=== PATIENT | female | born 1955 | race Caucasian/White ===

== ENCOUNTER 2020-01-16 11:03 | Outpatient (CLI) | payer MEDICARE, OTHER, SELFPAY ==
--- NOTE | ~2020-01-16 | XR_ITS ---
EXAMINATION: XR foot RT min 3V DATE: 01/16/2020 11:26 INDICATION: Dorsal right foot pain and swelling post fall 2 days prior TECHNIQUE: Dorsoplantar, two oblique and lateral views of the right foot were obtained. COMPARISON: None. FINDINGS: Alignment is normal. No fracture. Mild osteoarthritis at the first metatarsophalangeal and a few inte rphalangeal joints. Soft tissues are unremarkable. IMPRESSION: 1. 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 No acute osseous abnormality. Reviewed, dictated and finalized at location B. IMPRESSION: 1. 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 No acute osseous abnormal ity.
== END 2020-01-16 11:04 | disposition home or self-care (01) ==
LOC: CHSIMG 11:06
PROVIDERS: PCP Family Medicine; Visit Provider Family Medicine
DX: M79.671 Pain in right foot (principal); S99.929A Unspecified injury of unspecified foot, initial encounter
CPT/HCPCS: 73630

== ENCOUNTER 2020-02-16 12:17 | Outpatient (CLI) | payer MEDICARE, OTHER, SELFPAY ==
--- NOTE | ~2020-02-16 | MM_ITS ---
EXAMINATION: MM screening elizabeth BI w staci HISTORY: Screening mammogram, family history of breast cancer in her sister. TECHNIQUE: Craniocaudal and mediolateral oblique 3-D tomosynthesis images were obtained and synthetic 2-D images were generated. CAD analysis was submitted and interpreted. COMPARISON: 02/14/2019, 02/08/2019, 03/17/2017, 03/10/2016 BREAST PARENCHYMAL COMPOSITION: The breasts are heterogeneously dense, which may obscure small masses . FINDINGS: There is no evidence of suspicious mass, calcification, or architectural distortion to sugg est malignancy in either breast. There has been no suspicious interval change. IMPRESSION: 1. No mammographic evidence of malignancy. 2. Recommend routine screening mammography in one year. BI-RADS Category 1: Negative Reviewed, dictated and finalized at location A. LE CUT SAWYER
== END 2020-02-16 12:18 | disposition home or self-care (01) ==
LOC: CHSIMG 12:19
PROVIDERS: PCP Family Medicine; Visit Provider Family Medicine
DX: Z12.31 Encounter for screening mammogram for malignant neoplasm of breast (principal)
CPT/HCPCS: 77063; 77067

== ENCOUNTER 2020-08-19 07:32 | Emergency (ER) | payer MEDICARE, OTHER, SELFPAY ==
[2020-08-19 07:35] VITALS: BP 129/110; PULSE 115; RESP 20; TEMP 37.2; O2SAT 97
[2020-08-19] MEDS: HYDROcodone/acetaminophen (*CRX) 5-325 MG TABLET 1 TAB PO ×2 (07:53→09:25)
[2020-08-19] MEDS: KETOROLAC (*BKC) 60 MG/2 ML VIAL IM (07:54)
[2020-08-19 08:04] VITALS: BP 142/79
[2020-08-19 08:27] LABS: Basophils Absolute Auto 0.03 K/mm3 (0.00-0.10); Basophils Percent Auto 0.2 % (0.0-1.0); Hematocrit 34.8 % (35.0-42.0); Hemoglobin 12.5 g/dL (11.7-13.8); Immature Granulocyte Absolute 0.13 K/mm3 (0.00-0.00); Lymphocytes Absolute Auto 0.83 K/mm3 (1.10-4.50); Lymphocytes Percent Auto 6.3 % (18.0-42.0); Mean Corpuscular HGB Conc 35.9 g/dL (32.0-36.0); Mean Corpuscular Hemoglobin 33.2 pg (27.0-31.0); Mean Corpuscular Volume 92.6 fL (78.0-102.0); Mean Platelet Volume 8.1 fl (9.2-11.8); Monocytes Absolute Auto 1.97 K/mm3 (0.10-0.90); Monocytes Percent Auto 14.9 % (2.0-11.0); Neutrophils Absolute Auto 10.3 K/mm3 (1.7-7.2); Neutrophils Percent Auto 77.6 % (50.0-70.0); Platelet Count Result 420 K/mm3 (150-420); Red Blood Count 3.76 M/mm3 (4.20-5.40); Red Cell Distribution Width 12.1 % (11.6-14.4); White Blood Count 13.2 K/mm3 (4.8-10.8)
[2020-08-19] MEDS: ONDANSETRON HCL ODT 4 MG TABLET PO (08:37)
[2020-08-19 08:42] LABS: Alanine Aminotransferase 24 U/L (14-59); Albumin Level 3.2 g/dL (3.4-5.0); Alkaline Phosphatase 96 U/L (46-116); Anion Gap 11 mmol/L (8-16); Aspartate Amino Transferase 16 U/L (15-37); Bilirubin,Total 0.8 mg/dL (0.00-1.00); Blood Urea Nitrogen 28 mg/dL (7-18); Calcium 9.7 mg/dL (8.5-10.1); Carbon Dioxide 27 mmol/L (21-32); Chloride 86 mmol/L (98-108); Estimated Glomerular Filt Rate 39; Glucose 123 mg/dL (70-99); Osmolality Calculated 264 mOsm/kg (285-295); Potassium 3.6 mmol/L (3.5-5.1); Sodium 124 mmol/L (136-145); Total Protein 8.5 g/dL (6.4-8.2); Uric Acid 4.5 mg/dL (2.6-6.0)
[2020-08-19 08:45] LABS: CRP > 25.0 mg/dL (0.0-0.9)
[2020-08-19 08:53] LABS: RFT Charge Test YES; Rheumatoid Factor Screen Positive (Negative)
[2020-08-19] MEDS: SODIUM CHLORIDE 0.9% IV 1,000 ML 999 ML IV CONT (09:25)
[2020-08-19 09:27] LABS: Erythrocyte Sedimentation Rate 46 mm/hr (0-20)
[2020-08-19] MEDS: DEXAMETHASONE SOD PHOS INJ 4 MG/ML VIAL 10 MG IV PUSH (09:27)
[2020-08-19] MEDS: BACLOFEN 10 MG TABLET 20 MG PO (09:27)
[2020-08-19 09:34] VITALS: BP 133/62
--- NOTE | 2020-08-19 09:41 | ED.EXTPRO ---
HPI - Extremity Problem General Chief complaint: Extremity Problem,Nontraumatic Stated complaint: Pain in body Time Seen by Provider: 08/19/20 07:40 Source: patient and family Mode of arrival: ambulatory Limitations: no limitations History of Present Illness HPI Narrative: This young woman presents with diffuse body aches. She says she has been hurting all over for at least a week. Pain has been moderately severe to severe, sharp, and ongoing in right wrist, and right shoulder. Tylenol at home has not helped. It would appear this episode of pain was precipitated by her drinking alcohol in excess. She has had no known history of gout prior to this. She has been on medication known to precipitate gout. No modifying factors. Complaint: extremity pain Onset (ago): day(s) Pain Consistency: constant Location: right and other (wrist and shoulder) Quality: stabbing Relieving factors: nothing Exacerbating factors: exertion Associated symptoms: denies other symptoms Related Data Allergies Allergy/AdvReac Type Severity Reaction Status Date / Time No Known Allergies Allergy Verified 08/21/20 07:13 Review of Systems Constitutional: Constitutional: Reports no additional constitutional complaints Eyes: Eyes: Reports no additional eye complaints ENT: Reports system reviewed and no additional complaints, except as documented Cardiovascular: Cardiovascular: Reports no additional cardiovascular complaints Respiratory: Respiratory: Reports no additional respiratory complaints Gastrointestinal: Gastrointestinal: Reports no additional gastrointestinal complaints Genitourinary: Genitourinary: Reports no additional female genitourinary complaints Musculoskeletal: Musculoskeletal: Reports no additional musculoskeletal complaints Integumentary/Breasts: Skin/Breast: Reports system reviewed and no additional complaints, except as docu Neurologic: Reports system reviewed and no additional complaints, except as documented Psychiatric: Psychiatric: Reports no additional psychiatric complaints Endocrine: Endocrine: Reports no additional endocrine complaints Hematologic/Lymphatic: Hematologic/Lymphatic: Reports no additional hematologic/lymphatic complaints Allergic/Immunologic: Allergic/Immunologic: Reports no additional allergic/immunologic complaints [facility] Past Medical History Medical History Alcoholic cirrhosis of liver without ascites Primary hypertension Surgical History Surgical History Status post complete hysterectomy Family History Family History Father Acute myocardial infarction Mother Cervical cancer Social History Social History Smoking packs per day: 1 Smoking cigarettes per day: 20.0 Years smoked: 44 Smoking pack-years: 44.00 Smoking status: Former smoker Tobacco type: cigarettes Smoking end date: 06/07/18 Alcohol intake: current Drinks per week: 22 Substance use: never 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 Gender identity (if verbalized by the patient): Female Spiritual care concerns: No Exam Const: General: alert Orientation/consciousness: patient oriented x3 HENMT: Head: normal to inspection Ears: external ears normal and TM's normal bilaterally General nose exam: Normal external nose present Mouth: Yes Normal oral and palatal mucosa present Throat: posterior oropharynx normal Eyes: Conjunctivae: conjunctivae normal Neck: Neck: normal visual inspection Chest: Chest palpation & inspection: normal inspection of the chest Resp: Effort & Inspection: normal respiratory effort Auscultation: clear to auscultation bilaterally Cardio: Rate: regular rate Rhythm: regular rhythm GI: GI Palp: Yes Soft to palpation (nonte
[2020-08-19 10:05] LABS: Add Urine Microscopic? YES; Appearance Urine Clear (Clear); Bilirubin Urine 1+ (Negative); Blood Urine Negative (Negative); Color Urine Yellow (Yellow); Glucose Urine UA Negative (Negative); Ketones Urine 1+ (Negative); Leukocyte Esterase Ur Negative LEU/UL (Negative); Nitrate Urine Negative (Negative); Protein Urine 1+ (Negative)
[2020-08-19 10:10] LABS: RBC Urine None seen /hpf (0-2); Squamous Epithelial Cell Urine Moderate /hpf (Few); WBC Urine 0-3 /hpf (0-3)
[2020-08-19 10:11] LABS: Bacteria Urine 1+ /hpf
[2020-08-19 11:33] VITALS: RESP 17
== END 2020-08-19 11:35 | disposition home or self-care (01) ==
PROVIDERS: Emergency Provider Emergency Medicine; PCP Family Medicine
DX: M10.9 Gout, unspecified (principal)
CPT/HCPCS: 36415; 80053; 81001; 83735; 84550; 85025; 85652; 86038; 86140; 86430; 86431; 96361; 96372; 96374; 99283; 99284; A9270; J1100; J1885; J7030

== ENCOUNTER 2020-09-05 15:10 | Outpatient (CLI) | payer MEDICARE, OTHER, SELFPAY ==
--- NOTE | ~2020-09-05 | XR_ITS ---
XR hand BI arthritis min 3V DATE: 09/05/2020 15:48 INDICATION: Bilateral hand pain TECHNIQUE: 4 views of each hand COMPARISON: None FINDINGS: No fracture or dislocation, periosteal reaction or bone destruction, erosive change or nathaniel drocalcinosis. Joint spaces appear relatively preserved. IMPRESSION: No significant abnormality Reviewed, dictated and finalized at location A. IMPRESSION: No significant abnormality
== END 2020-09-05 15:11 | disposition home or self-care (01) ==
LOC: CHSIMG 15:16
PROVIDERS: PCP Family Medicine; Visit Provider Family Medicine
DX: D89.89 Other specified disorders involving the immune mechanism, not elsewhere classified (principal)
CPT/HCPCS: 73130

== ENCOUNTER 2020-09-25 10:10 | Outpatient (CLI) | payer MEDICARE, OTHER, SELFPAY ==
--- NOTE | ~2020-09-25 | US_ITS ---
EXAMINATION: US venous doppler [facility] DATE: 09/25/2020 11:12 INDICATION: Other specified soft tissue disorders TECHNIQUE: Cardozo scale images without and with compression and Doppler images of the left lower extrem ity veins were obtained. COMPARISON: None FINDINGS: The left common femoral vein, profunda femoral vein, femoral vein, popliteal vein, peroneal trunk, posterior tibial veins, and greater saphenous vein are patent. IMPRESSION: 1. Patent left lower extremity veins. No evidence of deep venous thrombosis. Reviewed, dictated and finalized at location A.
[2020-09-25 10:35] LABS: Hematocrit 32.4 % (35.0-42.0); Hemoglobin 11.3 g/dL (11.7-13.8); Mean Corpuscular HGB Conc 34.9 g/dL (32.0-36.0); Mean Corpuscular Volume 94.7 fL (78.0-102.0); Mean Platelet Volume 7.9 fl (9.2-11.8); Platelet Count Result 261 K/mm3 (150-420); Red Blood Count 3.42 M/mm3 (4.20-5.40); Red Cell Distribution Width 12.9 % (11.6-14.4); White Blood Count 7.2 K/mm3 (4.8-10.8)
[2020-09-25 11:25] LABS: Alanine Aminotransferase 46 U/L (14-59); Alkaline Phosphatase 103 U/L (46-116); Anion Gap 12 mmol/L (8-16); Aspartate Amino Transferase 34 U/L (15-37); Bilirubin,Total 0.4 mg/dL (0.00-1.00); Blood Urea Nitrogen 12 mg/dL (7-18); Carbon Dioxide 27 mmol/L (21-32); Chloride 95 mmol/L (98-108); Estimated Glomerular Filt Rate 57; Glucose 93 mg/dL (70-99); NT Pro B Type Natriuretic Pept 132 pg/mL (0-125); Osmolality Calculated 277 mOsm/kg (285-295); Potassium 3.7 mmol/L (3.5-5.1); Sodium 134 mmol/L (136-145); Total Protein 6.5 g/dL (6.4-8.2)
[2020-09-25 11:35] LABS: Calcium 8.4 mg/dL (8.5-10.1)
== END 2020-09-25 10:11 | disposition home or self-care (01) ==
LOC: CHSLAB 10:19
PROVIDERS: PCP Family Medicine; Visit Provider Family Medicine
DX: M79.89 Other specified soft tissue disorders (principal); D89.89 Other specified disorders involving the immune mechanism, not elsewhere classified; I50.89 Other heart failure
CPT/HCPCS: 36415; 80053; 83880; 85027; 93971

== ENCOUNTER 2021-02-18 11:47 | Outpatient (CLI) | payer MEDICARE, OTHER, SELFPAY ==
--- NOTE | ~2021-02-18 | MM_ITS ---
EXAMINATION: MM screening elizabeth BI w staci HISTORY: Screening mammogram, family history of breast cancer in her sister. TECHNIQUE: Craniocaudal and mediolateral oblique 3-D tomosynthesis images were obtained and synthetic 2-D images were generated. CAD analysis was submitted and interpreted. COMPARISON: 02/16/2020, 02/14/2019 BREAST PARENCHYMAL COMPOSITION: The breasts are heterogeneously dense, which may obscure small masses . FINDINGS: There is no evidence of suspicious mass, calcification, or architectural distortion to sugg est malignancy in either breast. There has been no suspicious interval change. IMPRESSION: 1. No mammographic evidence of malignancy. 2. Recommend routine screening mammography in one year. BI-RADS Category 1: Negative Reviewed, dictated and finalized at location A. HET BEADER
== END 2021-02-18 11:48 | disposition home or self-care (01) ==
LOC: CHSIMG 11:48
PROVIDERS: PCP Family Medicine; Visit Provider Family Medicine
DX: Z12.31 Encounter for screening mammogram for malignant neoplasm of breast (principal)
CPT/HCPCS: 77063; 77067

== ENCOUNTER 2021-05-11 07:16 | Outpatient (CLI) | payer MEDICARE, OTHER, SELFPAY ==
--- NOTE | ~2021-05-11 | XR_ITS ---
EXAMINATION: XR foot RT standing 2V EXAM DATE: 05/11/2021 08:26 INDICATION: M05.79 - Rheumatoid arthritis with rheumatoid factor of m... TECHNIQUE: Frontal and lateral projections of the right foot Comparison is made to prior examination from 01/16/2020. FINDINGS: There are no acute right foot fractures or dislocations identified. There is no subcutaneo us gas. The soft tissue is unremarkable. There are no radiopaque foreign bodies. There is forefoo t periarticular osteopenia which can be an early finding of rheumatoid arthritis. Similar appearance to contralateral side. There are no bony erosions identified. IMPRESSION: Right forefoot periventricular osteopenia. Reviewed, dictated and finalized at location G. EQUIPMENT OPERATOR
--- NOTE | ~2021-05-11 | XR_ITS ---
EXAMINATION: XR hand BI arthritis min 3V EXAM DATE: 05/11/2021 08:26 INDICATION: M05.79 - Rheumatoid arthritis with rheumatoid factor of m... TECHNIQUE: Frontal, oblique, lateral projections of the hands bilaterally, 4 images obtained. Compar darren is made to prior examination from 09/05/2020. FINDINGS: Joint spaces are uniform and symmetric. There are no bony erosions identified. There are n o acute fractures or dislocations identified. There is no subcutaneous gas. The soft tissue is unre markable. There are no radiopaque foreign bodies. IMPRESSION: 1. Unremarkable bilateral handexam. Reviewed, dictated and finalized at location G. NCE TECHNICIAN
--- NOTE | ~2021-05-11 | XR_ITS ---
EXAMINATION: XR cervical spine 4-5V EXAM DATE: 05/11/2021 08:26 INDICATION: Rheumatoid Arthritis TECHNIQUE: Cervical spine frontal, lateral, lateral swimmers, and open-mouth odontoid projections. There is no prior study for comparison. FINDINGS: Mild carotid calcification, arterial sclerotic disease, with unknown amount of additional atherosclerotic disease. Consider correlating with carotid ultrasound. There is mild to moderate loss of the disc height from C5-7. The vertebral bodies are aligned in the AP dimension. There is moderate cervical uncovertebral and facet joint arthropathy. The odontoid proc ess is intact. The lateral masses of C1 line up with C2. Prevertebral soft tissue and pre-dens space are within normal limits. There are no bony erosions identified. There are no acute fractures identi fied. IMPRESSION: 1. Moderate cervical arthropathy, mild to moderate lower cervical disc disease. 2. Carotid calcification, consider ultrasound. Reviewed, dictated and finalized at location G. LE WEBCENTER CONSULTANT IMPRESSION: 1. Moderate cervical arthropathy, mild to moderate lower cervical disc diseas e. 2. Carotid calcification, consider ultrasound.
--- NOTE | ~2021-05-11 | XR_ITS ---
EXAMINATION: XR foot LT standing 2V EXAM DATE: 05/11/2021 08:26 INDICATION: M05.79 - Rheumatoid arthritis with rheumatoid factor of m... TECHNIQUE: Frontal and lateral projections of the left foot. Correlation is made to contralateral fo ot same date. FINDINGS: There are no acute left foot fractures or dislocations identified. There is no subcutaneou s gas. The soft tissue is unremarkable. There are no radiopaque foreign bodies. There is forefoot periarticular osteopenia, can be an early finding of rheumatoid arthritis. This appears symmetric to the contralateral side. There are no bony erosions identified. IMPRESSION: Left forefoot periventricular osteopenia. Reviewed, dictated and finalized at location . YING AND CALKING SUPERVISOR
[2021-05-11 07:38] LABS: Hematocrit 43.1 % (35.0-42.0); Hemoglobin 14.7 g/dL (11.7-13.8); Mean Corpuscular HGB Conc 34.1 g/dL (32.0-36.0); Mean Corpuscular Volume 96.6 fL (78.0-102.0); Mean Platelet Volume 8.8 fl (9.2-11.8); Platelet Count Result 372 K/mm3 (150-420); Red Blood Count 4.46 M/mm3 (4.20-5.40); Red Cell Distribution Width 11.5 % (11.6-14.4); White Blood Count 6.8 K/mm3 (4.8-10.8)
[2021-05-11 07:39] LABS: Appearance Urine Clear (Clear); Bilirubin Urine Negative (Negative); Color Urine Yellow (Yellow); Glucose Urine UA Negative (Negative); Ketones Urine Negative (Negative); Leukocyte Esterase Ur Negative LEU/UL (Negative); Nitrate Urine Negative (Negative); Protein Urine Trace (Negative); Specific Grav Ur >= 1.030 (1.010-1.020); Urobilinogen Urine 0.2 mg/dL (0.2-1.0); pH Urine 5.5 (5.0-8.0)
[2021-05-11 07:46] LABS: Add Urine Microscopic? YES; Blood Urine Trace-lysed (Negative)
[2021-05-11 07:47] LABS: RBC Urine 0-2 /hpf (0-2); WBC Urine 0-3 /hpf (0-3)
[2021-05-11 07:48] LABS: Bacteria Urine Trace /hpf; Squamous Epithelial Cell Urine Moderate /hpf (Few)
[2021-05-11 07:49] LABS: Mucus Urine Moderate /lpf
[2021-05-11 08:20] LABS: Alanine Aminotransferase 45 U/L (14-59); Albumin Level 4.1 g/dL (3.4-5.0); Alkaline Phosphatase 94 U/L (46-116); Anion Gap 8 mmol/L (8-16); Aspartate Amino Transferase 31 U/L (15-37); Bilirubin,Total 0.5 mg/dL (0.00-1.00); Blood Urea Nitrogen 11 mg/dL (7-18); Calcium 9.7 mg/dL (8.5-10.1); Carbon Dioxide 31 mmol/L (21-32); Chloride 100 mmol/L (98-108); Estimated Glomerular Filt Rate 47; Glucose 89 mg/dL (70-99); Osmolality Calculated 286 mOsm/kg (285-295); Potassium 4.1 mmol/L (3.5-5.1); Sodium 139 mmol/L (136-145); Total Protein 7.9 g/dL (6.4-8.2)
[2021-05-11 08:23] LABS: CRP < 0.2 mg/dL (0.0-0.9)
[2021-05-11 08:46] LABS: Erythrocyte Sedimentation Rate 38 mm/hr (0-20)
[2021-05-15 22:34] LABS: Anti Cyclic Citrullinated Pept >250 Units (<20)
== END 2021-05-11 07:17 | disposition home or self-care (01) ==
LOC: CHSIMG 07:19
PROVIDERS: PCP Family Medicine; Visit Provider Internal Medicine
DX: R89.9 Unspecified abnormal finding in specimens from other organs, systems and tissues (principal); M05.79 Rheumatoid arthritis with rheumatoid factor of multiple sites without organ or systems involvement; M19.90 Unspecified osteoarthritis, unspecified site
CPT/HCPCS: 36415; 72050; 73130; 73620; 80053; 81001; 85027; 85652; 86038; 86140; 86200

== ENCOUNTER 2021-09-16 07:06 | Outpatient (CLI) | payer MEDICARE, SELFPAY ==
[2021-09-16 07:26] LABS: Add Urine Microscopic? YES; Appearance Urine Clear (Clear); Basophils Absolute Auto 0.06 K/mm3 (0.00-0.10); Basophils Percent Auto 0.9 % (0.0-1.0); Bilirubin Urine Negative (Negative); Blood Urine Negative (Negative); Color Urine Light Yellow (Yellow); Eosinophils Absolute Auto 0.33 K/mm3 (0.02-0.50); Eosinophils Percent Auto 5.2 % (1.0-6.0); Glucose Urine UA Negative (Negative); Hematocrit 38.2 % (35.0-42.0); Hemoglobin 12.9 g/dL (11.7-13.8); Immature Granulocyte Absolute 0.02 K/mm3 (0.00-0.00); Immature Granulocyte Percent A 0.3 % (0.0-0.0); Ketones Urine Negative (Negative); Leukocyte Esterase Ur Trace LEU/UL (Negative); Lymphocytes Absolute Auto 1.57 K/mm3 (1.10-4.50); Lymphocytes Percent Auto 24.6 % (18.0-42.0); Mean Corpuscular HGB Conc 33.8 g/dL (32.0-36.0); Mean Corpuscular Hemoglobin 31.5 pg (27.0-31.0); Mean Corpuscular Volume 93.2 fL (78.0-102.0); Mean Platelet Volume 8.8 fl (9.2-11.8); Monocytes Absolute Auto 0.83 K/mm3 (0.10-0.90); Neutrophils Absolute Auto 3.6 K/mm3 (1.7-7.2); Nitrate Urine Negative (Negative); Platelet Count Result 414 K/mm3 (150-420); Protein Urine Negative (Negative); Red Cell Distribution Width 11.5 % (11.6-14.4); Specific Grav Ur >= 1.030 (1.010-1.020); Urobilinogen Urine 0.2 mg/dL (0.2-1.0); White Blood Count 6.4 K/mm3 (4.8-10.8)
[2021-09-16 07:33] LABS: RBC Urine None seen /hpf (0-2); Squamous Epithelial Cell Urine Few /hpf (Few); WBC Urine 0-3 /hpf (0-3)
[2021-09-16 07:34] LABS: Bacteria Urine Trace /hpf
[2021-09-16 07:45] LABS: Alanine Aminotransferase 21 U/L (14-59); Albumin Level 3.4 g/dL (3.4-5.0); Alkaline Phosphatase 104 U/L (46-116); Anion Gap 5 mmol/L (8-16); Aspartate Amino Transferase 19 U/L (15-37); Bilirubin,Total 0.5 mg/dL (0.00-1.00); Blood Urea Nitrogen 21 mg/dL (7-18); CRP 2.1 mg/dL (0.0-0.9); Calcium 9.2 mg/dL (8.5-10.1); Carbon Dioxide 29 mmol/L (21-32); Chloride 102 mmol/L (98-108); Estimated Glomerular Filt Rate 42; Glucose 96 mg/dL (70-99); Osmolality Calculated 285 mOsm/kg (285-295); Potassium 4.2 mmol/L (3.5-5.1); Sodium 136 mmol/L (136-145); Total Protein 7.9 g/dL (6.4-8.2)
[2021-09-16 08:31] LABS: Erythrocyte Sedimentation Rate 48 mm/hr (0-20)
== END 2021-09-16 07:07 | disposition home or self-care (01) ==
LOC: CHSLAB 07:08
PROVIDERS: PCP Family Medicine; Visit Provider Internal Medicine
DX: M06.9 Rheumatoid arthritis, unspecified (principal); M05.79 Rheumatoid arthritis with rheumatoid factor of multiple sites without organ or systems involvement; M19.90 Unspecified osteoarthritis, unspecified site
CPT/HCPCS: 36415; 80053; 81001; 85025; 85652; 86140

== ENCOUNTER 2021-10-29 13:44 | Outpatient (CLI) | payer MEDICARE, OTHER, SELFPAY ==
--- NOTE | ~2021-10-29 | US_ITS ---
US abdomen limited INDICATION: Alcoholic cirrhosis PROCEDURE: Realtime right upper abdominal ultrasound. COMPARISON: No prior studies for comparison. FINDINGS: The pancreas is normal without focal mass or pancreatic ductal dilation. Liver echotexture is normal without intrahepatic biliary dilatation. There is a small hyperechoic 9 mm lesion of the l iver, most likely benign hemangioma in the absence of known malignancy. There is normal directional f low in the portal vein. The gallbladder is normal without stones, gallbladder wall thickening or pericholecystic fluid. Comm on bile duct measures 5.7 mm. No sonographic Gonzalez's sign. IMPRESSION: 1: Small 9 mm hyperechoic liver lesion, most likely benign hemangioma in the absence of known maligna ncy. Clinically correlate. Reviewed, dictated and finalized at location A. IMPRESSION: 1: Small 9 mm hyperechoic liver lesion, most likely benign hemangioma in the ab sence of known malignancy. Clinically correlate.
== END 2021-10-29 13:45 | disposition home or self-care (01) ==
LOC: CHSIMG 13:48
PROVIDERS: PCP Family Medicine; Visit Provider Family Medicine
DX: K70.30 Alcoholic cirrhosis of liver without ascites (principal)
CPT/HCPCS: 76705

== ENCOUNTER 2022-01-20 07:26 | Outpatient (CLI) | payer MEDICARE, SELFPAY ==
[2022-01-20 07:40] LABS: Hematocrit 42.1 % (35.0-42.0); Hemoglobin 13.9 g/dL (11.7-13.8); Mean Corpuscular Hemoglobin 30.2 pg (27.0-31.0); Mean Corpuscular Volume 91.5 fL (78.0-102.0); Mean Platelet Volume 8.2 fl (9.2-11.8); Platelet Count Result 424 K/mm3 (150-420); Red Cell Distribution Width 13.4 % (11.6-14.4); White Blood Count 8.8 K/mm3 (4.8-10.8)
[2022-01-20 08:12] LABS: Alanine Aminotransferase 18 U/L (14-59); Albumin Level 3.8 g/dL (3.4-5.0); Alkaline Phosphatase 120 U/L (46-116); Anion Gap -2 mmol/L (8-16); Aspartate Amino Transferase 20 U/L (15-37); Bilirubin,Total 0.5 mg/dL (0.00-1.00); Blood Urea Nitrogen 19 mg/dL (7-18); CRP 1.1 mg/dL (0.0-0.9); Calcium 9.4 mg/dL (8.5-10.1); Carbon Dioxide 30 mmol/L (21-32); Chloride 100 mmol/L (98-108); Estimated Glomerular Filt Rate 52; Glucose 97 mg/dL (70-99); Osmolality Calculated 268 mOsm/kg (285-295); Potassium 4.3 mmol/L (3.5-5.1); Sodium 128 mmol/L (136-145); Total Protein 7.7 g/dL (6.4-8.2)
[2022-01-20 08:44] LABS: Erythrocyte Sedimentation Rate 36 mm/hr (0-20)
[2022-01-20 09:04] LABS: Add Urine Microscopic? NO; Appearance Urine Clear (Clear); Bilirubin Urine Negative (Negative); Blood Urine Negative (Negative); Color Urine Yellow (Yellow); Glucose Urine UA Negative (Negative); Ketones Urine Negative (Negative); Leukocyte Esterase Ur Negative LEU/UL (Negative); Nitrate Urine Negative (Negative); Protein Urine Negative (Negative); Specific Grav Ur >= 1.030 (1.010-1.020); Urobilinogen Urine 0.2 mg/dL (0.2-1.0)
== END 2022-01-20 07:27 | disposition home or self-care (01) ==
LOC: CHSLAB 07:29
PROVIDERS: PCP Family Medicine; Visit Provider Internal Medicine
DX: M19.90 Unspecified osteoarthritis, unspecified site (principal); M05.79 Rheumatoid arthritis with rheumatoid factor of multiple sites without organ or systems involvement; M06.9 Rheumatoid arthritis, unspecified
CPT/HCPCS: 36415; 80053; 81003; 85027; 85652; 86140

== ENCOUNTER 2022-02-20 13:46 | Outpatient (CLI) | payer MEDICARE, OTHER, SELFPAY ==
--- NOTE | ~2022-02-20 | MM_ITS ---
EXAMINATION: MM screening elizabeth BI w staci HISTORY: Screening TECHNIQUE: Craniocaudal and mediolateral oblique 3-D tomosynthesis images were obtained and synthetic 2-D images were generated. CAD analysis was submitted and interpreted. COMPARISON: Comparison to multiple prior studies sequentially, with oldest reviewed study dated 08/2015. BREAST PARENCHYMAL COMPOSITION: The breasts are extremely dense, which lowers the sensitivity of mamm ography FINDINGS: There is no evidence of suspicious mass, calcification, or architectural distortion to sugg est malignancy in either breast. There has been no suspicious interval change. IMPRESSION: 1. No mammographic evidence of malignancy. 2. Recommend routine screening mammography in one year. BI-RADS Category 1: Negative Reviewed, dictated and finalized at location A. T NURSE MANAGER
== END 2022-02-20 13:47 | disposition home or self-care (01) ==
LOC: CHSIMG 13:47
PROVIDERS: PCP Family Medicine; Visit Provider Family Medicine
DX: Z12.31 Encounter for screening mammogram for malignant neoplasm of breast (principal)
CPT/HCPCS: 77063; 77067

== ENCOUNTER 2022-10-03 15:24 | Emergency (ER) | payer MEDICARE, OTHER, SELFPAY ==
[2022-10-03 15:24] VITALS: BP 173/94; PULSE 88; RESP 16; TEMP 36.9; O2SAT 100
--- NOTE | 2022-10-03 15:33 | ED.SKABFB ---
HPI - Skin/Abscess/Foreign Bdy General Chief complaint: Skin/Abscess/Foreign Body Stated complaint: poison mathieu rash Time Seen by Provider: 10/03/22 15:33 Source: patient and RN notes reviewed Mode of arrival: ambulatory Limitations: no limitations History of Present Illness complaint: rash Onset (ago): day(s) (2) Tetanus up to date: yes Location: generalized and face Severity: moderate Quality: constant and pruritic Pain Consistency: constant Relieving factors: none Context: other ( contact with poison mathieu) Associated symptoms: itching Treatments prior to arrival: OTC topical medication Related Data Allergies Allergy/AdvReac Type Severity Reaction Status Date / Time No Known Allergies Allergy Verified 08/05/22 10:57 Review of Systems Review of Systems: All systems reviewed & are unremarkable except as noted in HPI and below PMFSH Past Medical History Medical History Alcoholic cirrhosis of liver without ascites Alcoholic polyneuropathy Primary hypertension Rheumatoid arthritis with rheumatoid factor of multiple sites without organ or systems involvement (~08/2020) Surgical History Surgical History Status post complete hysterectomy Family History Family History Father Acute myocardial infarction Mother Cervical cancer Social History Social History Smoking packs per day: 1 Smoking cigarettes per day: 20.0 Years smoked: 44 Smoking pack-years: 44.00 Smoking status: Former smoker Tobacco type: cigarettes Smoking end date: 06/07/18 Alcohol intake: current Drinks per week: 22 Alcohol use details: She reports she drinks about 3 drinks a day. Sometimes more. 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 Gender identity (if verbalized by the patient): Female Spiritual care concerns: No Exam Const: General: healthy appearing, no acute distress and alert Nutritional Appearance: well nourished Orientation/consciousness: patient oriented x3 Limitations: no limitations HENMT: Head: normal to inspection Ears: external ears normal Face/Nose/Sinus: Normal external nose present Face and sinus: normal facial exam Mouth: Yes moist mucous membranes Eyes: Conjunctivae: conjunctivae normal Pupils: Equal, round and reactive pupils present EOM: EOMs intact bilaterally Neck: Neck: normal visual inspection Resp: Effort & Inspection: normal respiratory effort Auscultation: clear to auscultation bilaterally Cardio: Rate: regular rate Rhythm: regular rhythm GI: GI Palp: Yes Soft to palpation and No Tenderness to palpation present (GI) Auscultation: normal bowel sounds Back/Spine/Pelvis: Cervical Spine: cervical ROM normal Thoracic/Lumbar Spine: thoraco-lumbar ROM normal Skin: General skin exam: normal color Rashes: rashes noted ( some vesicles on the eyelid and below the right eye. ) vesicles diffuse multiple locations arrangement linear and morphology linear and round Other: also on the anterior chest wall and the forearms Neuro: General: patient oriented x3, moves all extremities, no focal motor deficits and CN's II-XI intact bilaterally Speech: normal speech Gait exam (Neuro): Normal gait present Extrem: General: normal to inspection and no clubbing, cyanosis or edema Psych: Mental Status: mental status grossly normal Affect: normal
[2022-10-03] MEDS: methylPREDNISolone SOD SUCC 125 MG VIAL IM (15:48)
[2022-10-03 15:51] VITALS: BP 173/86; PULSE 88; RESP 20; TEMP 36.9; O2SAT 97
== END 2022-10-03 16:05 | disposition home or self-care (01) ==
LOC: CHSED 15:59
PROVIDERS: Emergency Provider Emergency Medicine; PCP Family Medicine
DX: L23.7 Allergic contact dermatitis due to plants, except food (principal); I10 Essential (primary) hypertension; Z87.891 Personal history of nicotine dependence
CPT/HCPCS: 96372; 99283; J2930

== ENCOUNTER 2023-01-16 07:43 | Outpatient (CLI) | payer MEDICARE, SELFPAY ==
[2023-01-16 07:56] LABS: Hematocrit 40.2 % (35.0-42.0); Hemoglobin 13.5 g/dL (11.7-13.8); Mean Corpuscular HGB Conc 33.6 g/dL (32.0-36.0); Mean Corpuscular Hemoglobin 32.1 pg (27.0-31.0); Mean Corpuscular Volume 95.7 fL (78.0-102.0); Mean Platelet Volume 8.3 fl (9.2-11.8); Platelet Count Result 393 K/mm3 (150-420); Red Cell Distribution Width 11.9 % (11.6-14.4); White Blood Count 8.4 K/mm3 (4.8-10.8)
[2023-01-16 07:59] LABS: Appearance Urine Clear (Clear); Bilirubin Urine Negative (Negative); Blood Urine Trace-Intact (Negative); Color Urine Yellow (Yellow); Glucose Urine UA Negative (Negative); Ketones Urine Trace (Negative); Leukocyte Esterase Ur Negative LEU/UL (Negative); Nitrate Urine Negative (Negative); Protein Urine Trace (Negative); Specific Grav Ur >= 1.030 (1.010-1.020); Urobilinogen Urine 0.2 mg/dL (0.2-1.0); pH Urine 5.5 (5.0-8.0)
[2023-01-16 08:12] LABS: Add Urine Microscopic? YES; Bacteria Urine Trace /hpf; Mucus Urine Few /lpf; RBC Urine 0-2 /hpf (0-2); Squamous Epithelial Cell Urine Few /hpf (Few); WBC Urine None seen /hpf (0-3)
[2023-01-16 08:34] LABS: Alanine Aminotransferase 18 U/L (14-59); Albumin Level 4.1 g/dL (3.4-5.0); Alkaline Phosphatase 109 U/L (46-116); Anion Gap 10 mmol/L (8-16); Aspartate Amino Transferase 18 U/L (15-37); Bilirubin,Total 0.8 mg/dL (0.00-1.00); Blood Urea Nitrogen 20 mg/dL (7-18); CRP 0.8 mg/dL (0.0-0.9); Carbon Dioxide 27 mmol/L (21-32); Chloride 100 mmol/L (98-108); Estimated Glomerular Filt Rate 44; Glucose 90 mg/dL (70-99); Osmolality Calculated 286 mOsm/kg (285-295); Potassium 4.5 mmol/L (3.5-5.1); Sodium 137 mmol/L (136-145); Total Protein 7.5 g/dL (6.4-8.2)
[2023-01-16 09:01] LABS: Erythrocyte Sedimentation Rate 36 mm/hr (0-20)
== END 2023-01-16 07:44 | disposition home or self-care (01) ==
LOC: CHSLAB 07:45
PROVIDERS: PCP Family Medicine; Visit Provider Internal Medicine
DX: M19.90 Unspecified osteoarthritis, unspecified site (principal); M05.79 Rheumatoid arthritis with rheumatoid factor of multiple sites without organ or systems involvement
CPT/HCPCS: 36415; 80053; 81001; 85027; 85652; 86140

== ENCOUNTER 2023-01-21 10:40 | Outpatient (CLI) | payer MEDICARE, SELFPAY | END 2023-01-21 10:41 | disposition home or self-care (01) | PROVIDERS: PCP Family Medicine; Visit Provider Family Medicine | DX: Z12.31 Encounter for screening mammogram for malignant neoplasm of breast (principal) | CPT/HCPCS: 99199 ==

== ENCOUNTER 2023-03-10 14:15 | Outpatient (CLI) | payer MEDICARE, OTHER, SELFPAY ==
--- NOTE | ~2023-03-10 | MM_ITS ---
EXAMINATION: MM screening elizabeth BI w staci HISTORY: Screening mammogram, family history of breast cancer in her sister. TECHNIQUE: Craniocaudal and mediolateral oblique 3-D tomosynthesis images were obtained and synthetic 2-D images were generated. CAD analysis was submitted and interpreted. COMPARISON: 02/20/2022, 02/18/2021, 02/16/2020 BREAST PARENCHYMAL COMPOSITION: The breasts are heterogeneously dense, which may obscure small masses . FINDINGS: No suspicious mass, calcification, or architectural distortion are identified in either shyanne ast to suggest malignancy. There has been no suspicious interval change. IMPRESSION: 1. No mammographic evidence of malignancy. 2. Recommend routine screening mammography in one year. BI-RADS Category 1: Negative Reviewed, dictated and finalized at location A. LIFE PHOTOGRAPHER
== END 2023-03-10 14:16 | disposition home or self-care (01) ==
LOC: CHSIMG 14:19
PROVIDERS: PCP Family Medicine; Visit Provider Family Medicine
DX: Z12.31 Encounter for screening mammogram for malignant neoplasm of breast (principal)
CPT/HCPCS: 77063; 77067

== ENCOUNTER 2023-10-30 04:51 | Emergency (ER) | payer MEDICARE, OTHER, SELFPAY ==
[2023-10-30] VITALS (26 sets, daily range): BP systolic 106–153; BP diastolic 50–77; PULSE 84–101; RESP 11–30; TEMP 36.9–37.1; O2SAT 89–100
--- NOTE | ~2023-10-30 | XR_ITS ---
EXAMINATION: XR chest 1V portable 10/30/2023 05:35 INDICATION: Weakness, fever and cough PROCEDURE: AP portable chest COMPARISON: 01/22/2019 FINDINGS: Right basilar atelectasis. Mildly elevated right diaphragm. No focal pneumonia, edema or pn eumothorax. The cardiomediastinal silhouette is within normal limits. There are no pleural effusions . There is no pneumothorax suspected. IMPRESSION: 1: Right basilar atelectasis with elevated right diaphragm.. Reviewed, dictated and finalized at location B.
--- NOTE | 2023-10-30 05:06 | PC.NURSE ---
dr Kincaid at the bedside.
--- NOTE | 2023-10-30 05:13 | ECG_ITS ---
Test Date: 2023-10-30 05:23:05 Measurements Intervals [place] Rate: 94 P: 46 DE: 124 QRS: 16 QRSD: 78 T: 50 QT: 306 QTc: 384 Interpretive Statements SINUS RHYTHM BASELINE ARTIFACT- I, II, III, AVR, AVL, AVF NORMAL ECG No previous ECG available for comparison Electronically Signed On 10-30-2023 06:22:01 CDT by Moises Flores D.O.
--- NOTE | 2023-10-30 05:21 | ED.GENADULT ---
HPI - General Adult General Chief complaint: Fever Stated complaint: fever Time Seen by Provider: 10/30/23 05:04 History of Present Illness HPI narrative: the patient is a 68-year-old woman with history of rheumatoid arthritis, on hydroxychloroquine and had been on prednisone 5 mg daily for approximately 2 months but is not currently on prednisone standing dose. 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 Prior hysterectomy, no other operations Since approximately October 08, 2023, the patient has had upper respiratory tract infection symptoms as manifested by fever cough rhinorrhea. She saw her primary care provider on 10/14/2023 and was diagnosed with COPD exacerbation, treated with a 10 day course of Augmentin and a 5 day course increased prednisone. COVID-19 was negative at that time. She was told to hold off on the standing dose prednisone 5 mg daily at the time but she is not restarted that prednisone since then. Her symptoms have continued despite the antibiotics and steroids. She continues to have fevers as high as 102? yesterday, nausea vomiting with dry heaves most recently 3 hours ago, rhinorrhea, sore throat, cough productive of white mucus, with generalized weakness fatigue and decreased oral intake. She also has chills and diaphoresis. No dyspnea. No nasal congestion at this time. No chest pain or abdominal pain. No urinary symptoms such as urgency frequency or dysuria or hematuria. No hematochezia or melena. She had a home COVID test two days ago: negative. Related Data Allergies Allergy/AdvReac Type Severity Reaction Status Date / Time No Known Allergies Allergy Verified 10/14/23 15:18 Review of Systems Review of Systems: All systems reviewed & are unremarkable except as noted in HPI and below Constitutional: Constitutional: Reports chills, Reports excessive sweating, Reports fatigue, Reports fever(s), Denies headache(s) and Reports weakness (generalized) Eyes: Eyes: Denies change in vision and Denies photophobia ENT: Denies dysphagia, Denies dizziness, Denies headache(s), Denies lip swelling, Denies nasal congestion, Denies sore throat and Denies tongue swelling Cardiovascular: Cardiovascular: Denies chest pain, Denies syncope, Denies rapid heart rate and Denies dyspnea Respiratory: Respiratory: Reports cough (productive of white mucous), Denies dyspnea and Denies wheezing Gastrointestinal: Gastrointestinal: Denies abdominal pain, Denies constipation, Denies dysphagia, Denies diarrhea, Reports nausea and Reports vomiting (with dry heaves) Genitourinary: Genitourinary: Denies hematuria, Denies urinary frequency, Denies dysuria and Denies urinary urgency Musculoskeletal: Musculoskeletal: Denies back pain, Denies myalgias, Denies arthralgias, Denies joint swelling and Denies numbness Integumentary/Breasts: Skin/Breast: Denies pruritus, Denies erythema and Denies rash Neurologic: Denies confusion, Denies dizziness, Denies syncope, Denies headache(s), Denies focal weakness, Denies numbness and Reports weakness (generalized, nonfocal) Psychiatric: Psychiatric: Denies anxiety and Denies confusion Endocrine: Endocrine: Reports fatigue Hematologic/Lymphatic: Hematologic/Lymphatic: Denies easy bleeding and Denies easy bruising Allergic/Immunologic: Allergic/Immunologic: Denies lip swelling, Denies tongue swelling and Denies wheezing PMFSH Past Medical History Medical History Alcoholic polyneuropathy Primary hypertension Rheumatoid arthritis with rheumatoid factor of multiple sites without organ or systems involvement (~08/2020) Surgical History Surgical History Status post complete hysterectomy Family History Family History Father Acute myocardial infarction Mother Karuna
[2023-10-30] MEDS: ONDANSETRON INJ 4 MG/2 ML VIAL IV PUSH (05:25)
[2023-10-30] MEDS: SODIUM CHLORIDE 0.9% IV 1,000 ML 999 ML IV CONT ×2 (05:25→05:59)
--- NOTE | 2023-10-30 05:27 | PC.NURSE ---
patient is unable to urinate at this time. IV fluids are now infusing. patient has call light. patient is aware that she is to call when she needs to void
--- NOTE | 2023-10-30 05:28 | PC.NURSE ---
xray at the bedside
[2023-10-30 05:29] LABS: Hemoglobin 13.5 g/dL (11.7-13.8); Mean Corpuscular HGB Conc 35.5 g/dL (32-36); Mean Corpuscular Hemoglobin 32.8 pg (27.0-31.0); Mean Corpuscular Volume 92.5 fL (78.0-102.0); Mean Platelet Volume 8.2 fl (9.2-11.8); Platelet Count Result 404 K/mm3 (150-420); Red Blood Count 4.11 M/mm3 (4.20-5.40); Red Cell Distribution Width 12.1 % (11.6-14.4)
--- NOTE | 2023-10-30 05:31 | PC.NURSE ---
lab at the bedside to draw second set of blood cultures
[2023-10-30 05:50] LABS: Lactic Acid Reflex 0.8 mmol/L (0.4-2.0)
[2023-10-30 05:56] LABS: Influenza A QL RT-PCR Negative (Negative); Influenza B QL RT-PCR Negative (Negative); RSV RNA, RT-PCR Negative (Negative); SARS-CoV-2 RNA PCR Positive (Negative)
[2023-10-30 05:59] LABS: Alanine Aminotransferase 70 U/L (14-59); Albumin Level 3.1 g/dL (3.4-5.0); Alkaline Phosphatase 206 U/L (46-116); Anion Gap 8 mmol/L (4-12); Aspartate Amino Transferase 27 U/L (15-37); Bilirubin,Total 0.3 mg/dL (0.00-1.00); Blood Urea Nitrogen 12 mg/dL (7-18); CRP 1.8 mg/dL (0.0-0.9); Calcium 8.9 mg/dL (8.5-10.1); Carbon Dioxide 27 mmol/L (21-32); Chloride 94 mmol/L (98-108); Estimated CRCL calculation 45 ml/min; Estimated Glomerular Filt Rate 56; Glucose 97 mg/dL (70-99); Magnesium 1.5 mg/dL (1.8-2.4); Osmolality Calculated 267 mOsm/kg (285-295); Potassium 3.8 mmol/L (3.5-5.1); Sodium 129 mmol/L (136-145); Total Protein 7.3 g/dL (6.4-8.2)
[2023-10-30 06:01] LABS: Ethanol < 3 mg/dL (0-6)
[2023-10-30 06:09] LABS: Band Neutrophils Percent 0 % (0-6); Eosinophils Absolute Manual 0.14 K/mm3 (0.02-0.50); Eosinophils Percent Manual 2 % (1-6); Lymphocytes Absolute Manual 1.12 K/mm3 (1.1-4.5); Lymphocytes Percent Manual 16 % (18-44); Monocytes Absolute Manual 0.98 K/mm3 (0.1-0.90); Monocytes Percent Manual 14 % (3-9); Neutrophils Absolute Manual 4.76 K/mm3 (1.7-7.2); Neutrophils Percent Manual 68 % (46-73); Platelet Estimate Adequate (Adequate); Total Cells Counted 100
[2023-10-30] MEDS: dexAMETHasone SOD PHOS INJ 10 MG/ML 1 ML VIAL IV PUSH (06:10)
[2023-10-30] MEDS: MAGNESIUM SULF 2 GM/WATER 50ML 2 GM/50 ML BAG IVPB (06:10)
[2023-10-30 06:14] LABS: Strep Group A RT-PCR NOT DETECTED (Negative)
[2023-10-30 06:15] LABS: Amylase 73 U/L (25-115); Lipase 71 U/L (16-77); Thyroid Stimulating Hormone Reflex 1.08 u/IU/mL (0.36-3.74); Troponin I 9.3 ng/L (0.00-60.4)
[2023-10-30] MEDS: BENZONATATE 100 MG CAPSULE PO (06:21)
[2023-10-30] MEDS: guaiFENesin/DEXTROMETHORPHAN 5 ML UDC 10 ML PO (06:21)
--- NOTE | 2023-10-30 06:30 | PC.NURSE ---
patient is resting on stretcher. denies any needs
[2023-10-30 06:41] LABS: Erythrocyte Sedimentation Rate 46 mm/hr (0-20)
[2023-10-30 07:22] LABS: Appearance Urine Clear (Clear); Bilirubin Urine Negative (Negative); Blood Urine Negative (Negative); Color Urine Light Yellow (Yellow); Glucose Urine UA Negative (Negative); Ketones Urine 1+ (Negative); Leukocyte Esterase Ur Negative LEU/UL (Negative); Nitrate Urine Negative (Negative); Protein Urine Negative (Negative); Specific Grav Ur 1.025 (1.010-1.020); Urobilinogen Urine 0.2 mg/dL (0.2-1.0)
[2023-10-30] MEDS: cefTRIAXone 2 GM/NS 100 ML 2 GM/100 ML BAG IVPB (07:22)
[2023-10-30 07:35] LABS: Amphetamine Screen Urine Negative (Negative); Barbiturate Screen Urine Negative (Negative); Benzodiazepines Screen Urine Negative (Negative); Cannabinoid Screen Urine Positive (Negative); Cocaine Screen Urine Negative (Negative); Methadone Screen Urine Negative (Negative); Opiate Screen Urine Negative (Negative); Phencyclidine Screen Urine Negative (Negative)
[2023-10-30 07:41] LABS: Add Urine Microscopic? YES; Bacteria Urine Rare /hpf; RBC Urine None seen /hpf (0-2); Squamous Epithelial Cell Urine Few /hpf (Few); WBC Urine None seen /hpf (0-3)
[2023-10-30] MEDS: AZITHROMYCIN 500 MG/NS 250 ML 500 MG/250 ML BAG 250 MG IVPB (07:55)
--- NOTE | 2023-11-01 12:37 | PC.NURSE ---
preliminary blood culture reports x2 reviewed. no growth to date
--- NOTE | 2023-11-05 12:56 | PC.NURSE ---
final blood cultures x2 reviewed. no growth after 5 days. no change in plan of care.
== END 2023-10-30 09:00 | disposition home or self-care (01) ==
PROVIDERS: Emergency Provider Emergency Medicine; PCP Family Medicine
DX: U07.1 COVID-19 (principal); J20.8 Acute bronchitis due to other specified organisms; J16.8 Pneumonia due to other specified infectious organisms; R53.1 Weakness; E83.42 Hypomagnesemia; M06.9 Rheumatoid arthritis, unspecified; J44.9 Chronic obstructive pulmonary disease, unspecified; I10 Essential (primary) hypertension; Z79.899 Other long term (current) drug therapy; Z87.891 Personal history of nicotine dependence
CPT/HCPCS: 36415; 71045; 80053; 80307; 81001; 82150; 83605; 83690; 83735; 84443; 84484; 85025; 85652; 86140; 87040; 87637; 87651; 93005; 96361; 96365; 96367; 96375; 99284; A9270; J0456; J0696; J1100; J2405; J3475; J7030

== ENCOUNTER 2023-11-24 12:21 | Outpatient (CLI) | payer MEDICARE, OTHER, SELFPAY ==
--- NOTE | ~2023-11-24 | CT_ITS ---
EXAMINATION: CT lung screening DATE: 11/24/2023 13:30 INDICATION: Personal history of nicotine dependence-QUIT,RECENT DX COVID TECHNIQUE: Computed tomography (CT) of the chest was performed without intravenous contrast. Addition al 3D reconstructions utilizing coronal maximum intensity projection (MIP) were performed. Automated exposure control and iterative reconstruction technique were employed. The dose-length product was 62 .42 mGy-cm. COMPARISON: None FINDINGS: There are a few regions of peripheral predominant reticular pattern of irregular septal line thickeni ng with lower lung predominance suggestive of chronic interstitial lung disease in either nonspecific interstitial pneumonia (NSIP) or usual interstitial pneumonia (UIP) pattern. There are few scattered small pulmonary nodules the largest measuring 5 mm in the posterior segment right upper lobe and in the lingula. There is also a triangular 4 mm likely intrafissural lymph node along the right minor fi ssure. No pulmonary edema or pleural effusion. Heart size is normal. Atherosclerotic coronary artery calcific location. Aortic valve calcific lesion. No pericardial effusion. Thoracic aorta is normal in caliber. No pathologically enlarged thoracic lymphadenopathy. Visualized upper abdomen is unremarkab le. Moderate thoracic spondylosis. IMPRESSION: 1. Lung-RADS category 2: Benign appearance or behavior. Continue annual screening with noncontrast lo w-dose chest CT in 12 months. Reviewed, dictated and finalized at location A. IMPRESSION: 1. Lung-RADS category 2: Benign appearance or behavior. Continue annual screeni ng with noncontrast low-dose chest CT in 12 months.
== END 2023-11-24 12:22 | disposition home or self-care (01) ==
PROVIDERS: PCP Nurse Practitioner Family; Visit Provider Nurse Practitioner Family
DX: Z12.2 Encounter for screening for malignant neoplasm of respiratory organs (principal); Z87.891 Personal history of nicotine dependence
CPT/HCPCS: 71271

== ENCOUNTER 2024-02-13 07:03 | Outpatient (CLI) | payer MEDICARE, SELFPAY ==
[2024-02-13 07:58] LABS: Add Urine Microscopic? NO; Appearance Urine Clear (Clear); Bilirubin Urine Negative (Negative); Blood Urine Negative (Negative); Color Urine Light Yellow (Yellow); Glucose Urine UA Negative (Negative); Ketones Urine Negative (Negative); Leukocyte Esterase Ur Negative (Negative); Nitrate Urine Negative (Negative); Protein Urine Negative (Negative); Specific Grav Ur 1.015 (1.010-1.020); Urobilinogen Urine 0.2 mg/dL (0.2-1.0)
[2024-02-13 07:59] LABS: Basophils Absolute Auto 0.12 K/mm3 (0.00-0.10); Basophils Percent Auto 1.4 % (0.0-1.0); Eosinophils Absolute Auto 0.39 K/mm3 (0.02-0.50); Eosinophils Percent Auto 4.5 % (1.0-6.0); Hematocrit 39.1 % (35.0-42.0); Hemoglobin 13.6 g/dL (11.7-13.8); Immature Granulocyte Absolute 0.05 K/mm3 (0.00-0.00); Immature Granulocyte Percent A 0.6 % (0.0-0.0); Lymphocytes Absolute Auto 1.73 K/mm3 (1.10-4.50); Lymphocytes Percent Auto 19.9 % (18.0-42.0); Mean Corpuscular HGB Conc 34.8 g/dL (32-36); Mean Corpuscular Hemoglobin 31.7 pg (27.0-31.0); Mean Corpuscular Volume 91.1 fL (78.0-102.0); Mean Platelet Volume 8.1 fl (9.2-11.8); Monocytes Absolute Auto 1.21 K/mm3 (0.10-0.90); Monocytes Percent Auto 13.9 % (2.0-11.0); Neutrophils Absolute Auto 5.21 K/mm3 (1.70-7.20); Neutrophils Percent Auto 59.7 % (50.0-70.0); Platelet Count Result 481 K/mm3 (150-420); Red Blood Count 4.29 M/mm3 (4.20-5.40); Red Cell Distribution Width 11.9 % (11.6-14.4); White Blood Count 8.7 K/mm3 (4.8-10.8)
[2024-02-13 08:16] LABS: Creatinine Urine 98.37 mg/dL (40-278); MALB Creatinine Ratio 13.2 mg/g (0-30); Microalbumin Urine Random < 13.0 mg/L
[2024-02-13 08:18] LABS: Alanine Aminotransferase 12 U/L (14-59); Albumin Level 3.5 g/dL (3.4-5.0); Alkaline Phosphatase 109 U/L (46-116); Anion Gap 12 mmol/L (4-12); Aspartate Amino Transferase 22 U/L (15-37); Bilirubin,Total 0.3 mg/dL (0.00-1.00); Blood Urea Nitrogen 15 mg/dL (7-18); CRP 1.3 mg/dL (0.0-0.9); Calcium 9.7 mg/dL (8.5-10.1); Carbon Dioxide 27 mmol/L (21-32); Chloride 97 mmol/L (98-108); Estimated Glomerular Filt Rate 52; Glucose 92 mg/dL (70-99); Osmolality Calculated 282 mOsm/kg (285-295); Phosphorus 4.2 mg/dL (2.6-4.7); Potassium 4.8 mmol/L (3.5-5.1); Sodium 136 mmol/L (136-145); Total Protein 7.5 g/dL (6.4-8.2)
[2024-02-13 08:56] LABS: Erythrocyte Sedimentation Rate 39 mm/hr (0-20)
== END 2024-02-13 07:04 | disposition home or self-care (01) ==
PROVIDERS: PCP Family Medicine
DX: M06.072 Rheumatoid arthritis without rheumatoid factor, left ankle and foot (principal)
CPT/HCPCS: 36415; 80053; 81003; 82043; 84100; 85025; 85652; 86140

== ENCOUNTER 2024-04-13 14:34 | Outpatient (CLI) | payer MEDICARE, OTHER, SELFPAY ==
--- NOTE | ~2024-04-13 | MM_ITS ---
EXAMINATION: MM screening elizabeth BI w staci HISTORY: Screening TECHNIQUE: Craniocaudal and mediolateral oblique 3-D tomosynthesis images were obtained and synthetic 2-D images were generated. CAD analysis was submitted and interpreted. COMPARISON: Comparison to multiple prior studies sequentially, with oldest reviewed study dated 02/04. BREAST PARENCHYMAL COMPOSITION: Dense: The breasts are heterogeneously dense, which may obscure small masses FINDINGS: There is no evidence of suspicious mass, calcification, or architectural distortion to sugg est malignancy in either breast. There has been no suspicious interval change. IMPRESSION: 1. No mammographic evidence of malignancy. 2. Recommend routine screening mammography in one year. BI-RADS Category 1: Negative Reviewed, dictated and finalized at location B. E CUTTING SUPERVISOR
== END 2024-04-13 14:35 | disposition home or self-care (01) ==
PROVIDERS: PCP Family Medicine; Visit Provider Nurse Practitioner Family
DX: Z12.31 Encounter for screening mammogram for malignant neoplasm of breast (principal)
CPT/HCPCS: 77063; 77067

== ENCOUNTER 2024-05-12 12:15 | Outpatient (CLI) | payer MEDICARE, OTHER, SELFPAY ==
--- NOTE | ~2024-05-12 | XR_ITS ---
EXAMINATION: XR chest 2V 05/12/2024 12:38 INDICATION: Pneumonia PROCEDURE: 2 view chest COMPARISON: Comparison to multiple prior studies sequentially, with oldest reviewed study dated 01/06. FINDINGS: The lungs are clear. The cardiomediastinal silhouette is within normal limits. There are no pleural effusions. There is no pneumothorax suspected. IMPRESSION: 1: NO ACUTE CARDIOPULMONARY DISEASE. Reviewed, dictated and finalized at location B. HEN DESIGNER
--- OUTSIDE RECORDS SUMMARY | 2024-05-12 12:18 | XMS_ITS | Clinical Summary ---
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 Pulse 109 02/10/2012 1:33 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 Temperature - - Respiratory Rate - - Oxygen Saturation - - Inhaled Oxygen Concentration - - Weight 68.5 kg (151 lb) 02/10/2012 1:33 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 Height 175.3 cm (5' 9 ) 02/10/2012 1:33 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 Body Mass Index 22.3 02/10/2012 1:33 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 Plan of Treatment Health Maintenance Due Date Last Done Comments Colorectal Cancer Screening Colonoscopy (10 Years) 1955 Hepatitis C 1972 DTaP, Tdap and Td Vaccines ( 1 - Tdap) 1973 Mammogram Screening 1994 Zoster Vaccines (1 of 2) 2004 Dexa Scan (General) 2019 Pneumococcal Vaccine: 65+ Ye ars (1 of 1 - PCV) 2019 COVID-19 Vaccine ( - 2023-2 5 season) 2023 Influenza Adult (#1) 2024 RSV Immunization or 60+ Years (1 - 1-dose 75+ series) 2029 Meningococcal B Vaccine Aged Out No l onger eligible based on patient's age to complete this topic Meningococcal Vaccine Aged Out No tanya mindy eligible based on patient's age to complete this topic RSV Immunizations Under 20 Months Aged Out No longer eligible based on patient's age to complete this topic
[2024-05-12 12:33] LABS: Hematocrit 40.3 % (35.0-42.0); Hemoglobin 13.5 g/dL (11.7-13.8); Mean Corpuscular HGB Conc 33.5 g/dL (32-36); Mean Corpuscular Hemoglobin 30.3 pg (27.0-31.0); Mean Corpuscular Volume 90.4 fL (78.0-102.0); Mean Platelet Volume 8.1 fl (9.2-11.8); Platelet Count Result 331 K/mm3 (150-420); Red Blood Count 4.46 M/mm3 (4.20-5.40); Red Cell Distribution Width 12.9 % (11.6-14.4); White Blood Count 10.5 K/mm3 (4.8-10.8)
[2024-05-12 12:45] LABS: Alanine Aminotransferase 22 U/L (14-59); Albumin Level 3.8 g/dL (3.4-5.0); Alkaline Phosphatase 113 U/L (46-116); Anion Gap 13 mmol/L (4-12); Aspartate Amino Transferase 41 U/L (15-37); Bilirubin,Total 0.7 mg/dL (0.00-1.00); Blood Urea Nitrogen 17 mg/dL (7-18); Calcium 9.1 mg/dL (8.5-10.1); Carbon Dioxide 27 mmol/L (21-32); Chloride 88 mmol/L (98-108); Estimated Glomerular Filt Rate 37; Glucose 114 mg/dL (70-99); Osmolality Calculated 268 mOsm/kg (285-295); Potassium 3.9 mmol/L (3.5-5.1); Sodium 128 mmol/L (136-145); Total Protein 8.3 g/dL (6.4-8.2)
[2024-05-12 13:53] LABS: Total Cells Counted 100
[2024-05-12 13:54] LABS: Band Neutrophils Percent 0 % (0-6); Basophils Percent Manual 1 % (0-1); Eosinophils Percent Manual 0 % (1-6); Lymphocytes Absolute Manual 0.31 K/mm3 (1.1-4.5); Lymphocytes Percent Manual 3 % (18-44); Monocytes Absolute Manual 1.68 K/mm3 (0.1-0.90); Monocytes Percent Manual 16 % (3-9); Neutrophils Percent Manual 80 % (46-73)
[2024-05-12 13:55] LABS: Platelet Estimate Adequate (Adequate)
== END 2024-05-12 12:16 | disposition home or self-care (01) ==
PROVIDERS: PCP Family Medicine; Visit Provider Family Medicine
DX: J18.9 Pneumonia, unspecified organism (principal)
CPT/HCPCS: 36415; 71046; 80053; 85025

== ENCOUNTER 2024-06-08 07:20 | Outpatient (CLI) | payer MEDICARE, OTHER, SELFPAY ==
--- NOTE | ~2024-06-08 | XR_ITS ---
Right Hand Technique: PA and lateral views were obtained. Clinical History: Rheumatoid arthritis Findings: No acute fracture or dislocation is seen. Osseous alignment is anatomic. Joint spaces are p reserved. Soft tissues are unremarkable. Impression: Unremarkable right hand. Reviewed, dictated and finalized at location M. IBLE MACHINING SYSTEM MACHINIST Impression: Unremarkable right hand.
--- NOTE | ~2024-06-08 | XR_ITS ---
Right foot Technique: AP and lateral views were obtained. Clinical History: Rheumatoid arthritis COMPARISON: 05/11/2021 Findings: No acute fracture or dislocation is seen there are erosive changes at the fifth metatarsal head. Joint spaces are preserved without erosive or degenerative change. Soft tissues are unremarkabl e. Impression: Erosive changes fifth metatarsal head, compatible with inflammatory arthropathy. Appearance is probab ly most suggestive of gouty arthritis, but rheumatoid arthritis is within the differential diagnosis. Reviewed, dictated and finalized at location M. SHAPER Impression: Erosive changes fifth metatarsal head, compatible with inflammatory arthropathy . Appearance is probably most suggestive of gouty arthritis, but rheumatoid art hritis is within the differential diagnosis.
--- NOTE | ~2024-06-08 | XR_ITS ---
Left Hand Technique: PA and lateral views were obtained. Clinical History: Rheumatoid arthritis Findings: No acute fracture or dislocation is seen. Osseous alignment is anatomic. Joint spaces are p reserved. Soft tissues are unremarkable. Impression: Unremarkable left hand. Reviewed, dictated and finalized at location M. PRODUCTION MANAGER Impression: Unremarkable left hand.
--- NOTE | ~2024-06-08 | XR_ITS ---
Left foot Technique: AP and lateral views were obtained. Clinical History: Rheumatoid arthritis COMPARISON: 05/11/2021 Findings: No acute fracture or dislocation is seen. Osseous alignment is anatomic. Joint spaces are p reserved without erosive or degenerative change. Soft tissues are unremarkable. Impression: Unremarkable left foot radiographs. Reviewed, dictated and finalized at [facility]. E DISPATCHER Impression: Unremarkable left foot radiographs.
--- OUTSIDE RECORDS SUMMARY | 2024-06-08 07:24 | XMS_ITS | Data Portability ---
Author Organization [facility], Main Office Address [address] [place] [address] Care Team Providers Care Fire Technician Name Role Phone FIONA ARREOLA Referring Provider CURTIS NEVILLE Primary Care Provider [phone] Assessment No assessment recorded. Plan of Treatment Reminders Order Date Submit Date Provider Last Modified By Organization Details Last Modified Time Details Appointments None recorded. Lab None recorded. Referral None recorded. Procedures cerumen removal (PROC) [id number] [email or web address] Not available 11:39:19 Surgeries None recorded. Imaging None recorded. Medication Orders None recorded. Patient TargetsNo targets recorded. Patient InstructionsNo instructions recorded. Reason for Referral None Reported. Problems Name Problem SNOMED Code Status Onset Date Resolution Date Notes Provider Name and Address Organization Details Recorded Time Impacted cerumen in left ear [id number] 1 Active 2023 DARRON Higuera [address] [facility], [facility], [place], [address] [place] [address] [employer] 12:43:13 Problem Notes None recorded. Procedures Surgical History Date Name Laterality Status Provider Name and Address Organization Details Recorded Time total abdominal hysterectomy completed Helen Zelaya RN [place] [employer] 11/30/2023 12:53:13 Imaging Results None recorded. Procedure Notes None recorded. Medical Equipment None Reported. Allergies No known drug allergies Medications Name Sig Start Date Stop Date Status Note LastModified by Organization Details LastModified Time triamcinolo ne acetonide 0.5 % topical cream APPLY TOPICALLY 3 TIMES A DAY 11/30 completed Not Available Not Available Not Available azithromyci n 250 mg tablet TAKE 2 TABLETS BY MOUTH TODAY, THEN TAKE 1 TABLET DAILY FOR 4 DAYS DIRECTED. START 7/27 08/27 /2024 completed Not Available Not Available Not Available benzonatate 200 mg capsule 200 MG ORALLY TWICE A DAY NEEDED FOR COUGH 11/30 completed Not Available Not Available Not Available hydrocodone 5 mg-acetamin ophen 325 mg tablet TAKE 1 TABLET BY MOUTH EVERY 8 HOURS NEEDED FOR PAIN 11/30 completed Not Available Not Available Not Available prednisone 20 mg tablet PLEASE SEE ATTACHED FOR DETAILED DIRECTION S 11/30 completed Not Available Not Available Not Available dexamethaso ne 6 mg tablet TAKE 1 TABLET BY MOUTH EVERY DAY *START 10/31/2311/30 completed Not Available Not Available Not Available prednisone 5 mg tablet TAKE 1 TABLET BY MOUTH EVERY DAY 11/30 completed Not Available Not Available Not Available erythromyci n 5 mg/gram (0.5 %) eye ointment APPLY 0.5 INCH INTO EACH EYE TWICE A DAY FOR 5 DAYS 11/30 completed Not Available Not Available Not Available prednisone 50 mg tablet TAKE 1 TABLET BY MOUTH EVERY DAY 11/30 completed Not Available Not Available Not Available hydroxychlo roquine 200 mg tablet TAKE 1 TABLET BY MOUTH EVERY DAY active Not Available Not Available No t Available albuterol sulfate HFA 90 mcg/actuati on aerosol inhaler 1 PUFF INHALED EVERY 4 HOURS NEEDED FOR SHORTNESS OF BREATH OR WHEEZING active Not Available Not Available No t Available cefdinir 300 mg capsule TAKE 1 CAPSULE BY MOUTH EVERY 12 HOURS 11/30 completed Not Available Not Available Not Available amoxicillin 875 mg-potassiu m clavulanate 125 mg tablet TAKE 1 TABLET BY MOUTH TWICE A DAY FOR 10 DAYS 11/30 completed Not Available Not Available Not Available amlodipine 10 mg-benazepr il 20 mg capsule TAKE 1 CAPSULE BY MOUTH EVERY DAY active Not Available Not Available No t Available Vitals Date Recorded Body height Body mass index (BMI) Body weight Body temperature Provider Name and Address Organization Details Last Updated DateTime 12/01/2023 173.99 cm 20.7 kg/m2 81439.75 g 97.8 [degF] BRIGITTE Hinojosa [place] - [facility] 12/01/2023 11:47:26 Social History Question Answer Notes LastModified by Organizat ion Details LastModified Time Tobacco Smoking Status Current Every Day Smoker Helen Zelaya RN null, [place] - [facility] 11/16/2023 15:51:34 What Is Your Level Of Alcohol Consumption? Occasional Information not available 11/16/2023 How Many Years Have You Smoked Tobacco? 44 Information not available 11/16/2023 Sex: Unknown Functional Status None recorded. Mental Status None recorded. Family History Relationship Description Onset Age of this Age Resolved Age Notes LastModified by Organization Details LastModified Time Mother Malignant tumor of cervix [email or web address] Not available 2023 15:53:55 Father Myocardial infarction [email or web address] Not available 11/15 15:54:06 Notes:NO ENT Medical History Condition Response HYPERTENSION Y Gynecological HistoryNo gynecological history recorded. Obstetrics History GPAL:G 0 P 0 0 0 0 Past Encounters Encounter ID Performer Location Encounter Start Date Encounter Closed Date Diagnosis/Indication Diagnosis SNOMED-CT Code Diagnosis ICD10 Code Diagnosis Note [id number] DARRON Higuera [facility] [address] [place] [address] 12/01/2023 11:33:22 12/01/2023 12:44:21 Impacted cerumen in left ear [id number] H61.22 Health Concerns Section Related Observation LastModified by Organization Detai ls LastModified Time None Recorded Concern Status LastModified by Organization Details LastModified Time None Recorded Advance Directives Directive None Recorded Payers Encounter Date Sequence Insurance Name Policy Number Policy Crouch Covered Member ID Crouch Member ID Guarantor Name 12/01/2023 1 [place] Marzena Figueroa [id number] 1 Marzena Figueroa 12/01/2023 2 [employer] (MEDICARE SUPPLEMENT) Droi Figueroa [id number] Marzena Figueroa Notes Date Note Type Note Provider Name and Address Organization Details Recorded Time 12/01/2023 text/html This patient has a past medical history significant for HTN, RA, and COVID. She presents to the office for a cerumen impaction affecting her left ear. She reports that the affected ear was cleaned up by her PCP approximately 3 weeks prior, but unable to remove all of the cerumen. She denies use of any vglg-cba-gjdhzkx ear wax kit. She denies any ear pain or hearing loss. Helen Suh, CHEMICAL DETECTION EXPERT [address] [facility], [facility], [place], [address], [facility] [employer] 12/01/2023 12:43:35 OBGyn Episode No OBEpisode recorded.
--- OUTSIDE RECORDS SUMMARY | 2024-06-08 07:24 | XMS_ITS | Clinical Summary ---
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
[2024-06-08 07:42] LABS: Basophils Absolute Auto 0.07 K/mm3 (0.00-0.10); Basophils Percent Auto 1.3 % (0.0-1.0); Eosinophils Absolute Auto 0.27 K/mm3 (0.02-0.50); Eosinophils Percent Auto 4.8 % (1.0-6.0); Hematocrit 39.1 % (35.0-42.0); Hemoglobin 13.2 g/dL (11.7-13.8); Immature Granulocyte Absolute 0.02 K/mm3 (0.00-0.00); Immature Granulocyte Percent A 0.4 % (0.0-0.0); Lymphocytes Absolute Auto 2.25 K/mm3 (1.10-4.50); Lymphocytes Percent Auto 40.2 % (18.0-42.0); Mean Corpuscular HGB Conc 33.8 g/dL (32-36); Mean Corpuscular Volume 91.8 fL (78.0-102.0); Monocytes Percent Auto 14.3 % (2.0-11.0); Neutrophils Absolute Auto 2.19 K/mm3 (1.70-7.20); Platelet Count Result 361 K/mm3 (150-420); Red Blood Count 4.26 M/mm3 (4.20-5.40); Red Cell Distribution Width 13.5 % (11.6-14.4); White Blood Count 5.6 K/mm3 (4.8-10.8)
[2024-06-08 07:43] LABS: Add Urine Microscopic? YES; Appearance Urine Clear (Clear); Bilirubin Urine Negative (Negative); Blood Urine Negative (Negative); Color Urine Light Yellow (Yellow); Glucose Urine UA Negative (Negative); Ketones Urine Negative (Negative); Leukocyte Esterase Ur 1+ (Negative); Nitrate Urine Negative (Negative); Protein Urine Negative (Negative); Specific Grav Ur >= 1.030 (1.010-1.020); Urobilinogen Urine 0.2 mg/dL (0.2-1.0)
[2024-06-08 07:48] LABS: Bacteria Urine 1+ /hpf; Mucus Urine Few /lpf; RBC Urine None seen /hpf (0-2); Squamous Epithelial Cell Urine Moderate /hpf (Few)
[2024-06-08 08:41] LABS: Erythrocyte Sedimentation Rate 38 mm/hr (0-20)
[2024-06-08 09:07] LABS: Alanine Aminotransferase 23 U/L (14-59); Albumin Level 3.7 g/dL (3.4-5.0); Alkaline Phosphatase 115 U/L (46-116); Anion Gap 6 mmol/L (4-12); Aspartate Amino Transferase 38 U/L (15-37); Bilirubin,Total 0.7 mg/dL (0.00-1.00); Blood Urea Nitrogen 15 mg/dL (7-18); Carbon Dioxide 31 mmol/L (21-32); Chloride 99 mmol/L (98-108); Estimated Glomerular Filt Rate 51; Glucose 92 mg/dL (70-99); Osmolality Calculated 282 mOsm/kg (285-295); Potassium 4.3 mmol/L (3.5-5.1); Sodium 136 mmol/L (136-145); Total Protein 7.3 g/dL (6.4-8.2)
[2024-06-08 09:08] LABS: CRP < 0.1 mg/dL (0.0-0.9)
== END 2024-06-08 07:21 | disposition home or self-care (01) ==
PROVIDERS: PCP Family Medicine; Visit Provider Internal Medicine
DX: M06.072 Rheumatoid arthritis without rheumatoid factor, left ankle and foot (principal)
CPT/HCPCS: 36415; 73120; 73620; 80053; 81001; 84100; 85025; 85652; 86140

== ENCOUNTER 2024-11-14 06:57 | Outpatient (CLI) | payer MEDICARE, OTHER, SELFPAY ==
--- NOTE | 2024-11-14 | CONSULT_PTH ---
PATIENT: Marzena Figueroa LOC: [facility]#:[id number] AGE/SX: 69/F ROOM: RE11/14/[address]: Irene Loja MD : 1955 BED: DIS: 11/14/2024 SPEC #: [id number] RECD: 11/14/24 08:32 STATUS: LUBA REIsac #: [id number] REMEDIOS: 11/14/24 00:[address]: Irene Loja DEPT: [facility] Consult RECD BY: Heidy Ulloa MLT, ([facility]) ENTERED: 11/14/24 08:34 SP TYPE: Consult OTHR DR: Marco Gongora DO Tissues: A - Peripheral Smear Procedures: Hematology Consult
--- OUTSIDE RECORDS SUMMARY | 2024-11-14 07:00 | XMS_ITS | Clinical Summary ---
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 Pulse 109 02/10/2012 1:33 PM BLASTING GANG MINER Temperature - - Respiratory Rate - - Oxygen Saturation - - Inhaled Oxygen Concentration - - Weight 68.5 kg (151 lb) 02/10/2012 1:33 PM BLASTING GANG MINER Height 175.3 cm (5' 9) 02/10/2012 1:33 PM BLASTING GANG MINER Body Mass Index 22.3 02/10/2012 1:33 PM BLASTING GANG MINER Plan of Treatment Health Maintenance Due Date Last Done Comments Colorectal Cancer Screening Colonoscopy (10 Years) 1955 Hepatitis C 1972 DTaP, Tdap and Td Vaccines ( 1 - Tdap) 1973 Mammogram Screening 1994 Pneumococcal Vaccine: 50+ Ye ars (1 of 1 - PCV) 2004 Zoster Vaccines (1 of 2) 2004 Dexa Scan (General) 2019 COVID-19 Vaccine ( - 2023-2 5 season) 2023 RSV Immunization or 60+ Years (1 - [...]
[2024-11-14 07:33] LABS: Hematocrit 34.8 % (35.0-42.0); Hemoglobin 11.7 g/dL (11.7-13.8); Mean Corpuscular HGB Conc 33.6 g/dL (32-36); Mean Corpuscular Hemoglobin 34.6 pg (27.0-31.0); Mean Corpuscular Volume 103.0 fL (78.0-102.0); Platelet Count Result 420 K/mm3 (150-420); Red Blood Count 3.38 M/mm3 (4.20-5.40); White Blood Count 6.4 K/mm3 (4.8-10.8)
[2024-11-14 07:38] LABS: Add Urine Microscopic? YES; Appearance Urine Clear (Clear); Glucose Urine UA Negative (Negative); Leukocyte Esterase Ur Trace (Negative); Nitrate Urine Negative (Negative); Specific Grav Ur 1.015 (1.010-1.020)
[2024-11-14 08:00] LABS: Band Neutrophils Percent 0 % (0-6); Eosinophils Absolute Manual 0.12 K/mm3 (0.02-0.50); Eosinophils Percent Manual 2 % (1-6); Lymphocytes Absolute Manual 1.60 K/mm3 (1.1-4.5); Lymphocytes Percent Manual 25 % (18-44); Monocytes Absolute Manual 1.02 K/mm3 (0.1-0.90); Monocytes Percent Manual 16 % (3-9); Neutrophils Absolute Manual 3.64 K/mm3 (1.3-6.7); Neutrophils Percent Manual 57 % (46-73); Total Cells Counted 100
[2024-11-14 08:06] LABS: Alanine Aminotransferase 26 U/L (6-35); Albumin Level 5.2 g/dL (3.5-5.1); Alkaline Phosphatase 82 U/L (38-126); Anion Gap 6 mmol/L (4-12); Aspartate Amino Transferase 53 U/L (14-36); Bilirubin,Total 0.9 mg/dL (0.2-1.3); Blood Urea Nitrogen 17 mg/dL (7-17); CRP < 0.5 mg/dL (<1.0); Calcium 10.4 mg/dL (8.4-10.2); Carbon Dioxide 27 mmol/L (22-30); Chloride 103 mmol/L (98-107); Estimated Glomerular Filt Rate 48; Glucose 103 mg/dL (65-110); Osmolality Calculated 283 mOsm/kg (285-295); Potassium 5.1 mmol/L (3.4-5.0); Sodium 136 mmol/L (137-145); Total Protein 8.2 g/dL (6.3-8.2)
== END 2024-11-14 06:58 | disposition home or self-care (01) ==
LOC: CHSLAB 06:59
PROVIDERS: PCP Family Medicine; Visit Provider Internal Medicine
DX: M06.09 Rheumatoid arthritis without rheumatoid factor, multiple sites (principal); Z79.899 Other long term (current) drug therapy
CPT/HCPCS: 36415; 80053; 81001; 84100; 85025; 85652; 86140

== ENCOUNTER 2024-12-22 05:21 | Emergency (ER) | payer MEDICARE, OTHER, SELFPAY ==
[2024-12-22 05:21] VITALS: BP 136/77; PULSE 119; RESP 20; TEMP 36.6; O2SAT 99
--- NOTE | 2024-12-22 05:27 | ED_ITS ---
HPI - Epistaxis General Chief complaint: Epistaxis Stated complaint: nose bleed Time Seen by Provider: 12/22/24 05:23 Source: patient Mode of arrival: ambulatory Limitations: no limitations History of Present Illness HPI Narrative: 69-year-old female with a history of smoking, alcohol use,hypertension, rheumatoid arthritis on Rinvoq, COPD presents to the ED with 45 minute history of -- right nostril bleeding. Bleeding was profuse and has now resolved. No prior history of epistaxis. Patient is not on any anticoagulants. MD complaint: epistaxis Location: right nostril Onset (ago): minute(s) ( 45 minutes) Duration: intermittent Related Data Home Medications ?Medication ?Instructions ?Recorded ?Confirmed ?Last Taken ?Type upadacitinib 15 mg tablet,extended mg PO 09/19/2409/04 Unknown History release 24 hr (Rinvoq) Allergies Allergy/AdvReac Type Severity Reaction Status Date / Time No Known Allergies Allergy Verified 12/22/24 05:39 Review of Systems 2 Review of Systems: All systems reviewed & are unremarkable except as noted in HPI and below Constitutional: Constitutional: Reports as per HPI and Reports no additional constitutional complaints Eyes: Eyes: Reports as per HPI and Reports no additional eye complaints ENT: Reports system reviewed and no additional complaints, except as documented, Reports as per HPI and Reports epistaxis Comments: right nostril epistaxis which started 45 minutes ago but has now resolved. Cardiovascular: Cardiovascular: Reports as per HPI and Reports no additional cardiovascular complaints Respiratory: Respiratory: Reports as per HPI and Reports no additional respiratory complaints Gastrointestinal: Gastrointestinal: Reports as per HPI and Reports no additional gastrointestinal complaints Genitourinary: Genitourinary: Reports no additional female genitourinary complaints and Reports as per HPI Musculoskeletal: Musculoskeletal: Reports no additional musculoskeletal complaints and Reports as per HPI Integumentary/Breasts: Skin/Breast: Reports system reviewed and no additional complaints, except as docu and Reports as per HPI Neurologic: Reports system reviewed and no additional complaints, except as documented and Reports as per HPI Psychiatric: Psychiatric: Reports no additional psychiatric complaints and Reports as per HPI Endocrine: Endocrine: Reports no additional endocrine complaints and Reports as per HPI Hematologic/Lymphatic: Hematologic/Lymphatic: Reports no additional hematologic/lymphatic complaints and Reports as per HPI Allergic/Immunologic: Allergic/Immunologic: Reports no additional allergic/immunologic complaints and Reports as per HPI PMFSH Past Medical History Medical History Rheumatoid arthritis with rheumatoid factor 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 Sometimes more. 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 Gender identity (if verbalized by the patient): Female Spiritual care concerns: No Exam 2 Narrative: Pulse of 119. Blood pressure 136/77. Const: General: no acute distress Orientation/consciousness: patient oriented x3 Limitations: no limitations HENMT: Head: normal to inspection Ears: external ears normal F yadira/Nose/Sinus: Normal external nose present and Epistaxis present ( No blood is noted in the Nostril. ) on the right Face and sinus: normal facial exam and sinuses nontender Mouth: Yes Normal oral and palatal mucosa present T hroat: posterior oropharynx normal Eyes: Conjunctivae: conjunctivae normal Pupils: Equal, round and reactive pupils present EOM: EOMs intact bilaterally Direct Ophthalmoscopy: no photophobia Neck: Neck: normal visual inspection, no lymphadenopathy and no meningeal signs Chest: Chest palpation & inspection: normal inspection of the chest Resp: Effort & Inspection: normal respiratory effort Auscultation: clear to auscultation bilaterally Cardio: Rate: regular rate Rhythm: regular rhythm GI: GI Palp: Yes Soft to palpation Auscultation: normal bowel sounds : General: Yes no CVA tenderness Back/Spine/Pelvis: Back: no CVA tenderness Skin: General skin exam: normal color Rashes: no rashes Wounds: no wounds Neuro: General: patient oriented x3, moves all extremities, no meningeal signs, no focal motor deficits and CN's II-XI intact bilaterally Cranial nerves: Yes Nystagmus not present Speech: normal speech Gait exam (Neuro): Normal gait present Extrem: General: normal to inspection and no clubbing, cyanosis or edema Psych: Mental Status: mental status grossly normal Affect: normal affect Attitude: cooperative Course Course Emergency Course: anterior epistaxis-- normal PT, PTT and platelet count. CKD with a BUN/creatinine of 21/1.37 with a GFR of 35 advised to use phenylephrine nasal p.r.n.. Vital Signs Vital signs: Vital Signs Temperature 36.6 C 12/22/24 05:21 Pulse Rate 119 H 12/22/24 05:21 Respiratory Rate 20 12/22/24 05:21 Blood Pressure 136/77 12/22/24 05:21 Pulse Oximetry 99 12/22/24 05:21 Oxygen Delivery Room Air 12/22/24 05:21 Temperature 36.6 C 12/22/24 05:21 Pulse Rate 119 H 12/22/24 05:21 Respiratory Rate 20 12/22/24 05:21 Blood Pressure 136/77 12/22/24 05:21 Pulse Oximetry 99 12/22/24 05:21 Oxygen Delivery Room Air 12/22/24 05:21 MDM - Epistaxis MDM Narrative Medical decision making narrative: anterior epistaxis Differential Diagnosis Differential diagnosis: Likely posterior epistaxis Lab Data Attestation: I reviewed the patient's lab results. 12/22/24 05:38 12/22/24 05:37 Labs: Lab Results 12/22/24 12/22/24 Range/Units 05:37 05:38 WBC 8.8 (4.8-10.8) K/mm3 RBC 3.26 L (4.20-5.40) M/mm3 Hgb 11.2 L (11.7-13.8) g/dL Hct 32.8 L (35.0-42.0) % MCV 100.6 (78.0-102.0) fL MCH 34.4 H (27.0-31.0) pg MCHC 34.1 (32-36) g/dL RDW 12.7 (11.6-14.4) % Plt Count 462 H (150-420) K/mm3 MPV 7.9 L (9.2-11.8) fl Immature Gran % (Auto) 1.4 H (0.0-0.0) % Neut % (Auto) 60.7 (50.0-70.0) % Lymph % (Auto) 23.1 (18.0-42.0) % [place] % (Auto) 11.7 H (2.0-11.0) % Eos % (Auto) 2.5 (1.0-6.0) % Baso % (Auto) 0.6 (0.0-1.0) % Lymph # (Auto) 2.04 (1.10-4.50) K/mm3 [place] # (Auto) 1.03 H (0.10-0.90) K/mm3 Eos # (Auto) 0.22 (0.02-0.50) K/mm3 Baso # (Auto) 0.05 (0.00-0.10) K/mm3 Abs Immat Gran (auto) 0.12 H (0.00-0.00) K/mm3 Absolute Neuts (auto) 5.36 (1.70-7.20) K/mm3 Absolute Nucleated RBC 0.00 (0.00-0.00) K/mm3 Nucleated RBC % 0.0 (0-0.0) % PT 10.0 (9.50-12.1) Seconds INR 0.9 APTT 23.0 L (23.9-30.70) Sec Sodium 136 L (137-145) mmol/L Potassium 4.6 (3.4-5.0) mmol/L Chloride 99 (98-107) mmol/L Carbon Dioxide 25 (22-30) mmol/L Anion Gap 12 (4-12) mmol/L BUN 21 H (7-17) mg/dL Creatinine 1.37 H (0.7-1.0) mg/dL Estim Creat Clear Calc 35 ml/min Estimated GFR 38 L (59 - ) Glucose 106 (65-110) mg/dL Calculated Osmolality 285 (285-295) mOsm/kg Calcium 9.9 (8.4-10.2) mg/dL Total Bilirubin 0.5 (0.2-1.3) mg/dL AST 43 H (14-36) U/L ALT 21 (6-35) U/L Alkaline Phosphatase 80 (38-126) U/L Total Protein 10.0 H (6.3-8.2) g/dL Albumin 4.8 (3.5-5.1) g/dL Discharge Plan Discharge Clinical Impression: Acute anterior epistaxis CKD (chronic kidney disease) stage 3, GFR 30-59 ml/min Qualifiers: Chronic kidney disease stage 3 subtype: stage 3b (GFR 30-44) Qualified Code(s): N18.32 - Chronic kidney disease, stage 3b Patient Disposition: Home Condition: Stable Instructions: Antibiotic Form, Nosebleed (ED) Patient Language: Citizen Of [place] Prescriptions: No Action hydroxychloroquine [Plaquenil] 200 mg tablet 200 mg PO DAILY Qty: 90 1RF albuterol sulfate 90 mcg/actuation HFA aerosol inhaler 1 puff inhalation Q4H PRN (Reason: shortness of breath or wheezing) Qty: 8.5 0RF Rinvoq 15 mg tablet extended release 24 hr PO sodium chloride 1,000 mg tablet,soluble 1,000 mg PO DAILY Qty: 30 0RF amlodipine-benazepril 10-20 mg capsule See Rx Instructions .ROUTE .COMPLEX Qty: 90 2RF Dose Instruction: TAKE 1 CAPSULE BY MOUTH EVERY DAY Rx Instructions: TAKE 1 CAPSULE BY MOUTH EVERY DAY Follow-up/Referrals: Marco Gongora DO [Primary Care Provider, [facility]] Time of Disposition: 06:46
[2024-12-22] MEDS: PHENYLEPHRINE HCL 0.5% NA SPRAY 15 ML BTL (*BKC) 1 SPRAY EACH NARE (05:35)
[2024-12-22 05:43] LABS: Hematocrit 32.8 % (35.0-42.0); Hemoglobin 11.2 g/dL (11.7-13.8); Immature Granulocyte Percent A 1.4 % (0.0-0.0); Lymphocytes Absolute Auto 2.04 K/mm3 (1.10-4.50); Mean Corpuscular HGB Conc 34.1 g/dL (32-36); Mean Corpuscular Hemoglobin 34.4 pg (27.0-31.0); Mean Corpuscular Volume 100.6 fL (78.0-102.0); Nucleated Red Blood Cells Absolute Auto 0.00 K/mm3 (0.00-0.00); Nucleated Red Blood Cells Perc 0.0 % (0-0.0); Platelet Count Result 462 K/mm3 (150-420); Red Blood Count 3.26 M/mm3 (4.20-5.40); White Blood Count 8.8 K/mm3 (4.8-10.8)
[2024-12-22 05:55] LABS: Alanine Aminotransferase 21 U/L (6-35); Albumin Level 4.8 g/dL (3.5-5.1); Alkaline Phosphatase 80 U/L (38-126); Anion Gap 12 mmol/L (4-12); Aspartate Amino Transferase 43 U/L (14-36); Bilirubin,Total 0.5 mg/dL (0.2-1.3); Blood Urea Nitrogen 21 mg/dL (7-17); Calcium 9.9 mg/dL (8.4-10.2); Carbon Dioxide 25 mmol/L (22-30); Chloride 99 mmol/L (98-107); Estimated CRCL calculation 35 ml/min; Estimated Glomerular Filt Rate 38; Glucose 106 mg/dL (65-110); Osmolality Calculated 285 mOsm/kg (285-295); Potassium 4.6 mmol/L (3.4-5.0); Sodium 136 mmol/L (137-145); Total Protein 10.0 g/dL (6.3-8.2)
[2024-12-22 05:59] LABS: INR 0.9; Partial Thromboplastin Time 23.0 Sec (23.9-30.70); Prothrombin Time 10.0 Seconds (9.50-12.1)
[2024-12-22 06:06] VITALS: O2SAT 97
[2024-12-22 06:15] VITALS: BP 113/51; PULSE 87; RESP 18; O2SAT 97
[2024-12-22 06:16] VITALS: O2SAT 96
--- NOTE | 2024-12-22 06:28 | PC.NURSE ---
predictive maintenance technician at pt bedside for update at this time. visitor remains at bedside. call light within reach.
[2024-12-22 06:30] VITALS: O2SAT 99
--- NOTE | 2024-12-22 06:41 | PC.NURSE ---
CORINNE Woodson at pt bedside for update including results and plan of care. visitor remains at bedside.
[2024-12-22 06:56] VITALS: TEMP 36.6
== END 2024-12-22 06:57 | disposition home or self-care (01) ==
PROVIDERS: Emergency Provider Internal Medicine Critical Care Medicine; PCP Family Medicine
DX: R04.0 Epistaxis (principal); I12.9 Hypertensive chronic kidney disease with stage 1 through stage 4 chronic kidney disease, or unspecified chronic kidney disease; N18.32 Chronic kidney disease, stage 3b; J44.9 Chronic obstructive pulmonary disease, unspecified; M06.9 Rheumatoid arthritis, unspecified; F17.210 Nicotine dependence, cigarettes, uncomplicated
CPT/HCPCS: 36415; 80053; 85025; 85610; 85730; 99283; A9270

== ENCOUNTER 2024-12-23 13:23 | Emergency (ER) | payer MEDICARE, OTHER, SELFPAY ==
[2024-12-23 13:23] VITALS: BP 132/78; PULSE 120; RESP 20; TEMP 36.5; O2SAT 96
--- OUTSIDE RECORDS SUMMARY | 2024-12-23 13:31 | XMS_ITS | Clinical Summary ---
Author Organization [facility] Address [address] [place] [id number] Care Team Providers Care Head Banquet Waiter/Waitress Name Role Phone Unavailable Primary Care Provider [...] Comments Blood Pressure 124/86 02/10/2012 1:33 PM ASPARAGUS BUNCHER Pulse 109 02/10/2012 1:33 PM ASPARAGUS BUNCHER Temperature - - Respiratory Rate - - Oxygen Saturation - - Inhaled Oxygen Concentration - - Weight 68.5 kg (151 lb) 02/10/2012 1:33 PM ASPARAGUS BUNCHER Height 175.3 cm (5' 9) 02/10/2012 1:33 PM ASPARAGUS BUNCHER Body Mass Index 22.3 02/10/2012 1:33 PM ASPARAGUS BUNCHER Plan of Treatment Health Maintenance Due Date Last Done Comments Colorectal Cancer Screening Colonoscopy (10 Years) 1954 Hepatitis C 1972 DTaP, Tdap and Td Vaccines ( 1 - Tdap) 1973 Mammogram Screening 1994 Pneumococcal Vaccine: 50+ Ye ars (1 of 1 - PCV) 2004 Zoster Vaccines (1 of 2) 2004 Dexa Scan (General) 2019 COVID-19 Vaccine ( - 2023-2 5 season) 2024 RSV Immunization or 60+ Years (1 [...]
--- NOTE | 2024-12-23 13:50 | ED.EPISTAXIS ---
HPI - Epistaxis General Chief complaint: Epistaxis Stated complaint: nose bleed Time Seen by Provider: 12/23/24 13:50 Source: patient Mode of arrival: ambulatory Limitations: no limitations History of Present Illness HPI Narrative: Patient is a 69-year-old female with a right nostril nose bleed on and off for the past 3 days. She came to the ER yesterday and the nose bleed proceeded to start again at this time. She is not on blood thinners. The air currently is very dry and part of her problems. MD complaint: epistaxis Location: right nostril Onset (ago): day(s) (Three) Duration: intermittent Context: other (Patient having right nostril bleeding over the past 3 days) Associated symptoms: other (None) Treatment prior to arrival: nose pinching, head tilted back, head leaned forward, stuffed nose with tissue, nasal clamp and ice Related Data Home Medications ?Medication ?Instructions ?Recorded ?Confirmed ?Last Taken ?Type upadacitinib 15 mg tablet,extended mg PO 09/19/24 09/19/24 Unknown History release 24 hr (Rinvoq) Allergies Allergy/AdvReac Type Severity Reaction Status Date / Time No Known Allergies Allergy Verified 12/23/24 13:38 Review of Systems Review of Systems: All systems reviewed & are unremarkable except as noted in HPI and below Constitutional: Constitutional: Reports no additional constitutional complaints Eyes: Eyes: Reports no additional eye complaints ENT: Reports system reviewed and no additional complaints, except as documented Cardiovascular: Cardiovascular: Reports no additional cardiovascular complaints Respiratory: Respiratory: Reports no additional respiratory complaints Gastrointestinal: Gastrointestinal: Reports no additional gastrointestinal complaints Genitourinary: Genitourinary: Reports no additional female genitourinary complaints Musculoskeletal: Musculoskeletal: Reports no additional musculoskeletal complaints Integumentary/Breasts: Skin/Breast: Reports system reviewed and no additional complaints, except as docu Neurologic: Reports system reviewed and no additional complaints, except as documented Psychiatric: Psychiatric: Reports no additional psychiatric complaints Endocrine: Endocrine: Reports no additional endocrine complaints Hematologic/Lymphatic: Hematologic/Lymphatic: Reports no additional hematologic/lymphatic complaints Allergic/Immunologic: Allergic/Immunologic: Reports no additional allergic/immunologic complaints PMFSH Past Medical History Medical History Rheumatoid arthritis with rheumatoid factor 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 Sometimes more. 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 Gender identity (if verbalized by the patient): Female Spiritual care concerns: No Exam Const: General: healthy appearing Nutritional Appearance: well nourished Orientation/consciousness: patient oriented x3 HENMT: Head: normal to inspection Ears: external ears normal Face/Nose/Sinus: external nose not normal Other: Right nostril is red and inflamed without obvious site of bleeding or active bleeding of the medial aspect Eyes: Conjunctivae: conjunctivae normal Pupils: Equal, round and reactive pupils present EOM: EOMs intact bilaterally Neck: Neck: normal visual inspection Chest: Chest palpation & inspection: normal inspection of the chest Resp: Effort & Inspection: normal respiratory effort and not labored Auscultation: clear to auscultation bilaterally and no crackles Cardio: Rate: regular rate Rhythm: regular rhythm Heart sounds: no murmurs GI: Inspection: non-distended GI Palp: Yes Soft to palpation and No Tenderness to palpation present (GI) Auscultation: normal bowel sounds : General: Yes bladder normal to palpation Back/Spine/Pelvis: Back: no CVA tenderness Skin: General skin exam: normal color Rashes: no rashes Wounds: no wounds Neuro: General: patient oriented x3, moves all extremities and no meningeal signs Extrem: General: normal to inspection Psych: Mental Status: mental status grossly normal Affect: normal affect Attitude: cooperative Course Vital Signs Vital signs: Vital Signs Temperature 36.5 C 12/23/24 13:23 Pulse Rate 120 H 12/23/24 13:23 Respiratory Rate 20 12/23/24 13:23 Blood Pressure 132/78 12/23/24 13:23 Pulse Oximetry 96 12/23/24 13:23 Oxygen Delivery Room Air 12/23/24 13:23 Temperature 36.5 C 12/23/24 13:23 Pulse Rate 120 H 12/23/24 13:23 Respiratory Rate 20 12/23/24 13:23 Blood Pressure 132/78 12/23/24 13:23 Pulse Oximetry 96 12/23/24 13:23 Oxygen Delivery Room Air 12/23/24 13:23 MDM - Epistaxis MDM Narrative Medical decision making narrative: Patient is a 69-year-old female with a right nostril bleeding over the past 3 days. We will proceed with a anterior rhino rocket sprayed with Afrin. She will see ENT as needed. Rhino rocket needs to be removed in the next 2-3 days. Discharge Plan Discharge Clinical Impression: Acute anterior epistaxis Patient Disposition: Home Condition: Stable Instructions: Nosebleed (ED) Additional Instructions: Please remove the nose rocket by Thursday morning. Come back to the ER with any questions or concerns. I suggest ENT if the nose bleeds do not stop. Patient Language: Portuguese Prescriptions: No Action hydroxychloroquine [Plaquenil] 200 mg tablet 200 mg PO DAILY Qty: 90 1RF Rinvoq 15 mg tablet extended release 24 hr PO amlodipine-benazepril 10-20 mg capsule See Rx Instructions .ROUTE .COMPLEX Qty: 90 2RF Dose Instruction: TAKE 1 CAPSULE BY MOUTH EVERY DAY Rx Instructions: TAKE 1 CAPSULE BY MOUTH EVERY DAY Follow-up/Referrals: Marco Gongora DO [Primary Care Provider, [facility]] Time of Disposition: 14:21
--- OUTSIDE RECORDS SUMMARY | 2024-12-23 13:55 | XMS_ITS | Clinical Summary ---
Author Organization [facility] Address [address] [place] [id number] Care Team Providers Care Chassis Inspector Name Role Phone Unavailable Primary Care Provider [...] Comments Blood Pressure 124/86 02/10/2012 1:33 PM OUTBOUND SALES CONSULTANT Pulse 109 02/10/2012 1:33 PM OUTBOUND SALES CONSULTANT Temperature - - Respiratory Rate - - Oxygen Saturation - - Inhaled Oxygen Concentration - - Weight 68.5 kg (151 lb) 02/10/2012 1:33 PM OUTBOUND SALES CONSULTANT Height 175.3 cm (5' 9) 02/10/2012 1:33 PM OUTBOUND SALES CONSULTANT Body Mass Index 22.3 02/10/2012 1:33 PM OUTBOUND SALES CONSULTANT Plan of Treatment Health Maintenance Due Date [...]
[2024-12-23 14:30] VITALS: BP 132/78; PULSE 95; RESP 20; TEMP 36.5; O2SAT 97
== END 2024-12-23 14:30 | disposition home or self-care (01) ==
PROVIDERS: Emergency Provider Emergency Medicine; PCP Family Medicine
DX: R04.0 Epistaxis (principal); I10 Essential (primary) hypertension; M06.9 Rheumatoid arthritis, unspecified; Z87.891 Personal history of nicotine dependence
CPT/HCPCS: 30901; 99282; A9270

== ENCOUNTER 2024-12-26 10:19 | Emergency (ER) | payer MEDICARE, OTHER, SELFPAY ==
--- NOTE | 2024-12-26 10:23 | ED.EPISTAXIS ---
HPI - Epistaxis General Stated complaint: weakness. Time Seen by Provider: 12/26/24 10:22 Source: patient Mode of arrival: ambulatory Limitations: no limitations History of Present Illness HPI Narrative: 69-year-old history of hypertension, recurrent nose bleeds presents to the ER with complaints of having bleeding from the right naris on off since I last few days. Patient was seen couple times here in the ER for the same. She states that today facial rapid rhino have few days ago and it fell off. She had bleeding earlier none at this time. Has not seen ENT doctor in the recent past. No history of trauma. She is not on any anticoagulant. Related Data Home Medications ?Medication ?Instructions ?Recorded ?Confirmed ?Last Taken ?Type upadacitinib 15 mg tablet,extended mg PO 09/19/24 09/19/24 Unknown History release 24 hr (Rinvoq) Allergies Allergy/AdvReac Type Severity Reaction Status Date / Time No Known Allergies Allergy Verified 12/23/24 13:38 Review of Systems Review of Systems: All systems reviewed & are unremarkable except as noted in HPI and below Constitutional: Constitutional: Reports no additional constitutional complaints Eyes: Eyes: Reports no additional eye complaints ENT: Reports as per HPI Cardiovascular: Cardiovascular: Reports no additional cardiovascular complaints Respiratory: Respiratory: Reports no additional respiratory complaints Gastrointestinal: Gastrointestinal: Reports no additional gastrointestinal complaints Musculoskeletal: Musculoskeletal: Reports no additional musculoskeletal complaints [facility] Past Medical History Medical History Rheumatoid arthritis with rheumatoid factor 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 Sometimes more. 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 Gender identity (if verbalized by the patient): Female Spiritual care concerns: No Exam Narrative: GENERAL: Well-appearing, well-nourished, and in no acute distress. HEAD: Normocephalic, atraumatic. EYES: PERRLA and EOMI. ENT: Nares clear, no rhinorrhea or epistaxis. Mucous membranes moist. NECK: Supple. CHEST: Clear to auscultation. No respiratory distress. HEART: Regular rate and rhythm. No murmur heard. Normal peripheral pulses. EXTREMITIES: Normal range of motion. No edema. SKIN: Warm, dry, no rash. NEURO: No focal deficits. Alert and oriented x3. PSYCH: Normal mood and affect. Course Course Emergency Course: No active bleeding at this time. Recommended to use the Afrin nasal spray given few days ago, advised to follow with ENT Discharge Plan Discharge Clinical Impression: Epistaxis Patient Disposition: Home Condition: Stable Instructions: Nosebleed (ED) Additional Instructions: CONTINUE WITH AFRIN NASAL SPRAY , FOLLOW WITH ENT DOCTOR Patient Language: [place] Prescriptions: No Action hydroxychloroquine [Plaquenil] 200 mg tablet 200 mg PO DAILY Qty: 90 1RF Rinvoq 15 mg tablet extended release 24 hr PO amlodipine-benazepril 10-20 mg capsule See Rx Instructions .ROUTE .COMPLEX Qty: 90 2RF Dose Instruction: TAKE 1 CAPSULE BY MOUTH EVERY DAY Rx Instructions: TAKE 1 CAPSULE BY MOUTH EVERY DAY Follow-up/Referrals: Marco Gongora DO [Primary Care Provider, Family Practice] Dank Oliva MD [Physician, Ear, Nose, Throat] Time of Disposition: 10:26
[2024-12-26 10:25] VITALS: BP 128/67; PULSE 81; RESP 18; TEMP 36.5; O2SAT 97
[2024-12-26 10:40] VITALS: BP 128/67; PULSE 81; RESP 18; TEMP 36.5; O2SAT 97
--- OUTSIDE RECORDS SUMMARY | 2024-12-26 11:24 | XMS_ITS | Clinical Summary ---
Author Organization [facility] Address [address] [place] [id number] Care Team Providers Care Preparation Department Supervisor Name Role Phone Unavailable Primary Care Provider [...] Comments Blood Pressure 124/86 02/10/2012 1:33 PM LOG HOOKER Pulse 109 02/10/2012 1:33 PM LOG HOOKER Temperature - - Respiratory Rate - - Oxygen Saturation - - Inhaled Oxygen Concentration - - Weight 68.5 kg (151 lb) 02/10/2012 1:33 PM LOG HOOKER Height 175.3 cm (5' 9) 02/10/2012 1:33 PM LOG HOOKER Body Mass Index 22.3 02/10/2012 1:33 PM LOG HOOKER Plan of Treatment Health Maintenance Due Date [...]
== END 2024-12-26 10:40 | disposition home or self-care (01) ==
LOC: CHSED 10:33
PROVIDERS: Emergency Provider Family Medicine; PCP Family Medicine
DX: R04.0 Epistaxis (principal); I10 Essential (primary) hypertension; M06.9 Rheumatoid arthritis, unspecified; Z87.891 Personal history of nicotine dependence
CPT/HCPCS: 99281

== ENCOUNTER 2024-12-30 06:58 | Outpatient (CLI) | payer MEDICARE, OTHER, SELFPAY ==
[2024-12-30 07:10] LABS: Hematocrit 25.9 % (35.0-42.0); Hemoglobin 8.6 g/dL (11.7-13.8); Immature Granulocyte Percent A 0.9 % (0.0-0.0); Lymphocytes Absolute Auto 1.35 K/mm3 (1.10-4.50); Mean Corpuscular HGB Conc 33.2 g/dL (32-36); Mean Corpuscular Hemoglobin 34.5 pg (27.0-31.0); Mean Corpuscular Volume 104.0 fL (78.0-102.0); Nucleated Red Blood Cells Absolute Auto 0.07 K/mm3 (0.00-0.00); Nucleated Red Blood Cells Perc 0.7 % (0-0.0); Platelet Count Result 473 K/mm3 (150-420); Red Blood Count 2.49 M/mm3 (4.20-5.40); White Blood Count 9.9 K/mm3 (4.8-10.8)
[2024-12-30 07:15] LABS: Add Urine Microscopic? NO; Appearance Urine Clear (Clear); Glucose Urine UA Negative (Negative); Leukocyte Esterase Ur Negative (Negative); Nitrate Urine Negative (Negative); Specific Grav Ur 1.020 (1.010-1.020)
[2024-12-30 07:48] LABS: MALB Creatinine Ratio 16.6 mg/g (0-30)
[2024-12-30 07:58] LABS: Alanine Aminotransferase 18 U/L (6-35); Albumin Level 4.6 g/dL (3.5-5.1); Alkaline Phosphatase 69 U/L (38-126); Anion Gap 9 mmol/L (4-12); Aspartate Amino Transferase 38 U/L (14-36); Bilirubin,Total 0.5 mg/dL (0.2-1.3); Blood Urea Nitrogen 12 mg/dL (7-17); CRP < 0.5 mg/dL (<1.0); Calcium 10.4 mg/dL (8.4-10.2); Carbon Dioxide 28 mmol/L (22-30); Chloride 102 mmol/L (98-107); Estimated Glomerular Filt Rate 49; Glucose 99 mg/dL (65-110); Osmolality Calculated 287 mOsm/kg (285-295); Potassium 4.8 mmol/L (3.4-5.0); Sodium 139 mmol/L (137-145); Total Protein 8.3 g/dL (6.3-8.2)
== END 2024-12-30 06:59 | disposition home or self-care (01) ==
LOC: CHSLAB 07:00
PROVIDERS: PCP Family Medicine; Visit Provider Internal Medicine
DX: M06.09 Rheumatoid arthritis without rheumatoid factor, multiple sites (principal)
CPT/HCPCS: 36415; 80053; 81003; 82043; 84100; 85025; 85652; 86140

== ENCOUNTER 2025-01-12 11:20 | Outpatient (CLI) | payer MEDICARE, OTHER, SELFPAY | END 2025-01-12 11:21 | disposition home or self-care (01) | LOC: CHSLAB 11:21 | PROVIDERS: PCP Family Medicine; Visit Provider Family Medicine | DX: I10 Essential (primary) hypertension (principal); K21.9 Gastro-esophageal reflux disease without esophagitis | CPT/HCPCS: 83013 ==

== ENCOUNTER 2025-01-16 10:33 | Observation (INO) | payer MEDICARE, OTHER, SELFPAY ==
--- NOTE | ~2025-01-16 | XR_ITS ---
Examination: XR chest 2V Clinical History: weakness Comparison: 05/12/2024 Technique: PA and Lateral Findings: Cardiomediastinal silhouette normal size and configuration. Lungs clear. Chronic right basilar CP angle atelectasis and/or scarring. No acute bony abnormality. Osteopenia. IMPRESSION: 1. No acute cardiopulmonary findings. Reviewed, dictated and finalized at location R.
[2025-01-16 10:34] VITALS: BP 115/67; PULSE 103; RESP 18; TEMP 37.1; O2SAT 97
--- NOTE | 2025-01-16 10:39 | ED_ITS ---
HPI - URI/Sore Throat General Chief Complaint: Unspecified Stated Complaint: no energy & dry cough Time Seen by Provider: 01/16/25 10:38 Source: patient Mode of arrival: ambulatory Limitations: no limitations History of Present Illness HPI Narrative: Patient is a 69-year-old female with generalized weakness and fatigue and lethargy over the past few weeks. She is progressively getting worse and has no energy. Primary doctor sent her in for evaluation. She had some lab work is done last month and her hemoglobin was 8.5 with a possible correlation. We will recheck labs. No other symptoms such as chest pain or shortness of breath. No nausea vomiting or diarrhea. No abdominal pain. She had a colonoscopy many many years ago that was negative and a stool occult fecal test last year that was negative. MD elicited complaint: other (Fatigue) Pertinent past history: other (GERD issues, hypertension) Onset (ago): week(s) (3) Consistency: constant Severity: moderate Pain scale (0-10): 5 Description of mucous: clear Able to tolerate fluids by mouth: Yes Exacerbating factors: nothing Relieving factors: nothing Context: other (Patient having continued and unresolving lethargy over the past 3 weeks sent by primary due to holiday today for emergency room evaluation) Associated symptoms: epistaxis (Resolved this time but was having on numerous occasions last month and came to this ER for evaluation) and other (General weakness and lethargy) Treatments prior to arrival: none Related Data Home Medications ?Medication ?Instructions ?Recorded ?Confirmed ?Last Taken ?Type upadacitinib 15 mg tablet,extended mg PO 09/19/2412/29 Unknown History release 24 hr (Rinvoq) Allergies Allergy/AdvReac Type Severity Reaction Status Date / Time No Known Allergies Allergy Verified 01/16/25 10:37 Review of Systems 2 Review of Systems: All systems reviewed & are unremarkable except as noted in HPI and below Constitutional: Constitutional: Reports no additional constitutional complaints Eyes: Eyes: Reports no additional eye complaints ENT: Reports system reviewed and no additional complaints, except as documented Cardiovascular: Cardiovascular: Reports no additional cardiovascular complaints Respiratory: Respiratory: Reports no additional respiratory complaints Gastrointestinal: Gastrointestinal: Reports no additional gastrointestinal complaints Genitourinary: Genitourinary: Reports no additional female genitourinary complaints Musculoskeletal: Musculoskeletal: Reports no additional musculoskeletal complaints Integumentary/Breasts: Skin/Breast: Reports system reviewed and no additional complaints, except as docu Neurologic: Reports system reviewed and no additional complaints, except as documented Psychiatric: Psychiatric: Reports no additional psychiatric complaints Endocrine: Endocrine: Reports no additional endocrine complaints Hematologic/Lymphatic: Hematologic/Lymphatic: Reports no additional hematologic/lymphatic complaints Allergic/Immunologic: Allergic/Immunologic: Reports no additional allergic/immunologic complaints PMFSH Past Medical History Medical History Rheumatoid arthritis with rheumatoid factor 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 Sometimes more. 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 Gender identity (if verbalized by the patient): Female Spiritual care concerns: No Exam 2 Const: General: healthy appearing Nutritional Appearance: well nourished Orientation/consciousness: patient oriented x3 Limitations: no limitations HENMT: Head: normal to inspection Ears: external ears normal F yadira/Nose/Sinus: Normal external nose present Eyes: Conjunctivae: conjunctivae normal Pupils: Equal, round and reactive pupils present EOM: EOMs intact bilaterally Neck: Neck: normal visual inspection, no lymphadenopathy and no meningeal signs Chest: Chest palpation & inspection: normal inspection of the chest Resp: Effort & Inspection: normal respiratory effort and not labored A uscultation: clear to auscultation bilaterally and no crackles Cardio: Rate: regular rate Rhythm: regular rhythm Heart sounds: no murmurs GI: Inspection: non-distended GI Palp: Yes Soft to palpation, No Tenderness to palpation present (GI) and No Guarding due to palpation present (GI) A uscultation: normal bowel sounds : General: Yes bladder normal to palpation Back/Spine/Pelvis: Back: no CVA tenderness Skin: General skin exam: normal color Rashes: no rashes Wounds: no wounds Neuro: General: patient oriented x3, moves all extremities, no meningeal signs, no focal motor deficits and CN's II-XI intact bilaterally Speech: n ormal speech Other: Fast exam negative, NIH is 0, GCS is 15 Extrem: General: normal to inspection and no clubbing, cyanosis or edema Psych: Mental Status: mental status grossly normal Affect: normal affect Attitude: cooperative Course Vital Signs Vital signs: Vital Signs Temperature 37.1 C 01/16/25 10:34 Pulse Rate 103 H 01/16/25 10:34 Respiratory Rate 18 01/16/25 10:34 Blood Pressure 115/67 01/16/25 10:34 Pulse Oximetry 97 01/16/25 10:34 Oxygen Delivery Room Air 01/16/25 10:34 Temperature 37.1 C 01/16/25 10:34 Pulse Rate 103 H 01/16/25 10:34 Respiratory Rate 18 01/16/25 10:34 Blood Pressure 115/67 01/16/25 10:34 Pulse Oximetry 97 01/16/25 10:34 Oxygen Delivery Room Air 01/16/25 10:38 MDM - URI/Sore Throat MDM Narrative Medical decision making narrative: Patient is 69-year-old female with generalized weakness with lethargy over the past 3 weeks. Will do a workup at this time. She has concerns for it her chart for recent anemia which we will check today. Lab Data Attestation: I reviewed the patient's lab results. 01/16/25 10:58 01/16/25 10:58 Labs: Lab Results 01/16/25 01/16/25 01/16/25 Range/Units 10:43 10:58 11:16 WBC 12.5 H (4.8-10.8) K/mm3 RBC 2.91 L (4.20-5.40) M/mm3 Hgb 9.6 L (11.7-13.8) g/dL Hct 28.5 L (35.0-42.0) % MCV 97.9 (78.0-102.0) fL MCH 33.0 H (27.0-31.0) pg MCHC 33.7 (32-36) g/dL RDW 12.9 (11.6-14.4) % Plt Count 367 (150-420) K/mm3 MPV 8.1 L (9.2-11.8) fl Immature Gran % (Auto) 0.9 H (0.0-0.0) % Neut % (Auto) 79.0 H (50.0-70.0) % Lymph % (Auto) 4.4 L (18.0-42.0) % [place] % (Auto) 14.8 H (2.0-11.0) % Eos % (Auto) 0.5 L (1.0-6.0) % Baso % (Auto) 0.4 (0.0-1.0) % Lymph # (Auto) 0.55 L (1.10-4.50) K/mm3 [place] # (Auto) 1.85 H (0.10-0.90) K/mm3 Eos # (Auto) 0.06 (0.02-0.50) K/mm3 Baso # (Auto) 0.05 (0.00-0.10) K/mm3 Abs Immat Gran (auto) 0.11 H (0.00-0.00) K/mm3 Absolute Neuts (auto) 9.89 H (1.70-7.20) K/mm3 Absolute Nucleated RBC 0.00 (0.00-0.00) K/mm3 Nucleated RBC % 0.0 (0-0.0) % Sodium 127 L (137-145) mmol/L Potassium 4.1 (3.4-5.0) mmol/L Chloride 91 L (98-107) mmol/L Carbon Dioxide 26 (22-30) mmol/L Anion Gap 10 (4-12) mmol/L BUN 15 (7-17) mg/dL Creatinine 1.36 H (0.7-1.0) mg/dL Estim Creat Clear Calc 35 ml/min Estimated GFR 38 L (59 - ) Glucose 155 H (65-110) mg/dL Calculated Osmolality 267 L (285-295) mOsm/kg Calcium 9.4 (8.4-10.2) mg/dL Magnesium 1.9 (1.6-2.3) mg/dL Total Bilirubin 0.9 (0.2-1.3) mg/dL AST 32 (14-36) U/L ALT 15 (6-35) U/L Alkaline Phosphatase 61 (38-126) U/L Total Creatine Kinase 300 H (30-135) U/L Troponin I 0.013 (0.000-0.034) ng/mL Total Protein 9.0 H (6.3-8.2) g/dL Albumin 4.5 (3.5-5.1) g/dL Urine Color Yellow (Yellow) Urine Appearance Clear (Clear) Urine pH 6.0 (5.0-8.0) Ur Specific [place] >= 1.030 H (1.010-1.020) Urine Protein 2+ H (Negative) Urine Glucose (UA) Negative (Negative) Urine Ketones Trace H (Negative) Ur Blood (Man) Trace-intact H (Negative) Urine Nitrate Negative (Negative) Urine Bilirubin 1+ H (Negative) Urine Urobilinogen 1.0 (0.2-1.0) mg/dL Leukocyte Esterase Rfl Negative (Negative) DANTE/UL Urine RBC None seen (0-2) /hpf Urine WBC None seen (0-3) /hpf Ur Squamous Epith Cells Few (Few) /hpf Urine Bacteria 1+ H (None) /hpf Hyaline Casts 5-9 H (None) /lpf Urine Mucus Few H /lpf Influenza A (RT-PCR) Negative (Negative) Influenza B (RT-PCR) Negative (Negative) RSV (RT-PCR) Negative (Negative) SARS-CoV-2 RNA (RT-PCR) Negative (Negative) Imaging Data Attestation: I personally reviewed and interpreted this imaging study as follows: Radiologist's impression: Chest x-ray is negative for acute process ECG Data EKG #1: Attestation: I personally reviewed and interpreted this ECG as follows: ECG completion date: 01/16/25 ECG completion time: 10:57 EKG Interpretation: normal rate, sinus rhythm, no ectopy, non-specific ST changes, normal QRS, normal QT and NL axis Discharge Plan Discharge Clinical Impression: Acute hyponatremia, MURIEL (acute kidney injury), Acute dehydration, Rhabdomyolysis, Lethargy Patient Disposition: Acute Care [facility] Condition: Stable Patient Language: Kyrgyz Prescriptions: No Action hydroxychloroquine [Plaquenil] 200 mg tablet 200 mg PO DAILY Qty: 90 1RF Rinvoq 15 mg tablet extended release 24 hr PO telmisartan 40 mg tablet 40 mg PO DAILY Qty: 90 0RF pantoprazole 40 mg tablet,delayed release (DR/EC) 40 mg PO QAM 42 Days Qty: 42 0RF Follow-up/Referrals: Marco Gongora DO [Primary Care Provider, [facility]] Time of Disposition: 11:41
--- NOTE | 2025-01-16 10:50 | ECG_ITS ---
Test Date: 2025-01-16 11:03:56 Measurements Intervals [place] Rate: 89 P: 64 [place]: 148 QRS: 42 QRSD: 100 T: 34 QT: 331 QTc: 404 Interpretive Statements SINUS RHYTHM INCOMPLETE RIGHT BUNDLE BRANCH BLOCK BORDERLINE ECG Compared to ECG 10/30/2023 05:23:05 NO SIGNIFICANT CHANGE Electronically Signed On 01-16-2025 11:36:35 CDT by Moises Flores D.O.
--- NOTE | 2025-01-16 10:52 | PC.NURSE ---
covid culture sent to lab
[2025-01-16 11:01] LABS: Hematocrit 28.5 % (35.0-42.0); Hemoglobin 9.6 g/dL (11.7-13.8); Immature Granulocyte Percent A 0.9 % (0.0-0.0); Lymphocytes Absolute Auto 0.55 K/mm3 (1.10-4.50); Mean Corpuscular HGB Conc 33.7 g/dL (32-36); Mean Corpuscular Hemoglobin 33.0 pg (27.0-31.0); Mean Corpuscular Volume 97.9 fL (78.0-102.0); Nucleated Red Blood Cells Absolute Auto 0.00 K/mm3 (0.00-0.00); Nucleated Red Blood Cells Perc 0.0 % (0-0.0); Platelet Count Result 367 K/mm3 (150-420); Red Blood Count 2.91 M/mm3 (4.20-5.40); White Blood Count 12.5 K/mm3 (4.8-10.8)
[2025-01-16 11:20] LABS: Add Urine Microscopic? YES; Appearance Urine Clear (Clear); Glucose Urine UA Negative (Negative); Leukocyte Esterase Ur Negative LEU/UL (Negative); Nitrate Urine Negative (Negative); Specific Grav Ur >= 1.030 (1.010-1.020)
[2025-01-16 11:21] LABS: Alanine Aminotransferase 15 U/L (6-35); Albumin Level 4.5 g/dL (3.5-5.1); Alkaline Phosphatase 61 U/L (38-126); Anion Gap 10 mmol/L (4-12); Aspartate Amino Transferase 32 U/L (14-36); Bilirubin,Total 0.9 mg/dL (0.2-1.3); Blood Urea Nitrogen 15 mg/dL (7-17); Calcium 9.4 mg/dL (8.4-10.2); Carbon Dioxide 26 mmol/L (22-30); Chloride 91 mmol/L (98-107); Creatine Kinase 300 U/L (30-135); Estimated CRCL calculation 35 ml/min; Estimated Glomerular Filt Rate 38; Glucose 155 mg/dL (65-110); Magnesium 1.9 mg/dL (1.6-2.3); Osmolality Calculated 267 mOsm/kg (285-295); Potassium 4.1 mmol/L (3.4-5.0); Sodium 127 mmol/L (137-145); Total Protein 9.0 g/dL (6.3-8.2)
[2025-01-16 11:22] LABS: Influenza A QL RT-PCR Negative (Negative); Influenza B QL RT-PCR Negative (Negative); RSV RNA, RT-PCR Negative (Negative); SARS-CoV-2 RNA PCR Negative (Negative)
[2025-01-16 11:32] LABS: Troponin I 0.013 ng/mL (0.000-0.034)
--- OUTSIDE RECORDS SUMMARY | 2025-01-16 11:39 | XMS_ITS | Clinical Summary ---
Author Organization [facility] Address [address] [place] [id number] Care Team Providers Care Setter Automatic Spinning Lathe Name Role Phone Unavailable Primary Care Provider [...] Comments Blood Pressure 124/86 02/10/2012 1:33 PM SILK SPOOLER Pulse 109 02/10/2012 1:33 PM SILK SPOOLER Temperature - - Respiratory Rate - - Oxygen Saturation - - Inhaled Oxygen Concentration - - Weight 68.5 kg (151 lb) 02/10/2012 1:33 PM SILK SPOOLER Height 175.3 cm (5' 9) 02/10/2012 1:33 PM SILK SPOOLER Body Mass Index 22.3 02/10/2012 1:33 PM SILK SPOOLER Plan of Treatment Health Maintenance Due Date Last Done Comments Colorectal Cancer Screening Colonoscopy (10 Years) 1954 Hepatitis C 1972 DTaP, Tdap and Td Vaccines ( 1 - Tdap) 1973 Mammogram Screening 1994 Pneumococcal Vaccine: 50+ Ye ars (1 of 1 - PCV) 2004 Zoster Vaccines (1 of 2) 2004 Dexa Scan (General) 2019 COVID-19 Vaccine ( - 2023-2 5 season) 2024 Influenza Adult (#1) 2025 RSV Immunization or 60+ Years (1 - [...]
[2025-01-16] MEDS: SODIUM CHLORIDE 0.9% IV 1,000 ML 999 ML IV CONT (11:40)
--- OUTSIDE RECORDS SUMMARY | 2025-01-16 12:07 | XMS_ITS | Clinical Summary ---
Author Organization [facility] Address [address] [place] [id number] Care Team Providers Care Cost Accountant Name Role Phone Unavailable Primary Care Provider [...] Comments Blood Pressure 124/86 02/10/2012 1:33 PM SECURITY OPERATIONS ENGINEER Pulse 109 02/10/2012 1:33 PM SECURITY OPERATIONS ENGINEER Temperature - - Respiratory Rate - - Oxygen Saturation - - Inhaled Oxygen Concentration - - Weight 68.5 kg (151 lb) 02/10/2012 1:33 PM SECURITY OPERATIONS ENGINEER Height 175.3 cm (5' 9) 02/10/2012 1:33 PM SECURITY OPERATIONS ENGINEER Body Mass Index 22.3 02/10/2012 1:33 PM SECURITY OPERATIONS ENGINEER Plan of Treatment Health Maintenance Due Date [...]
[2025-01-16 12:25] VITALS: RESP 18; O2SAT 95; BMI 24.4
--- NOTE | 2025-01-16 12:25 | ADMGEN ---
This patient, Marzena Figueroa, was admitted to 2nd Floor Room 210-1. Patient/family oriented to hospital policies and general routines including ID bracelet, bed and alarms, visiting hours, pain management, procedures, bathroom and other care routines, personal items, smoking policy, room service/diet, and visiting hours. Information on how to activate the Rapid Response Team has been discussed. Patient/Family are encouraged to report perceived risks to care and to ask questions if they do not understand what they are told or what they should do.
[2025-01-16 13:52] VITALS: O2SAT 94
[2025-01-16 14:25] VITALS: PULSE 78; RESP 16
[2025-01-16] MEDS: SODIUM CHLORIDE 0.9% IV 1,000 ML 100 ML IV CONT (15:29)
[2025-01-16 16:45] VITALS: BP 131/53; PULSE 79; RESP 18; TEMP 37.2; O2SAT 95
[2025-01-16 20:00] VITALS: PULSE 79; PULSE 87; RESP 18; O2SAT 95
[2025-01-16] MEDS: ONDANSETRON INJ 4 MG/2 ML VIAL IV PUSH (21:16)
[2025-01-16] MEDS: MELATONIN 5 MG TABLET PO (21:16)
[2025-01-16] MEDS: ACETAMINOPHEN 325 MG TABLET 650 MG PO (21:17)
[2025-01-17] VITALS: BP 135/51; PULSE 74; RESP 18; TEMP 37.3; O2SAT 95
[2025-01-17] MEDS: SODIUM CHLORIDE 0.9% IV 1,000 ML 100 ML IV CONT (01:32)
[2025-01-17 04:00] VITALS: PULSE 62
[2025-01-17 07:19] LABS: Hematocrit 26.3 % (35.0-42.0); Hemoglobin 8.8 g/dL (11.7-13.8); Immature Granulocyte Percent A 0.9 % (0.0-0.0); Lymphocytes Absolute Auto 0.41 K/mm3 (1.10-4.50); Mean Corpuscular HGB Conc 33.5 g/dL (32-36); Mean Corpuscular Hemoglobin 33.3 pg (27.0-31.0); Mean Corpuscular Volume 99.6 fL (78.0-102.0); Nucleated Red Blood Cells Absolute Auto 0.00 K/mm3 (0.00-0.00); Nucleated Red Blood Cells Perc 0.0 % (0-0.0); Platelet Count Result 359 K/mm3 (150-420); Red Blood Count 2.64 M/mm3 (4.20-5.40); White Blood Count 11.7 K/mm3 (4.8-10.8)
[2025-01-17 07:32] LABS: Alanine Aminotransferase 14 U/L (6-35); Albumin Level 4.0 g/dL (3.5-5.1); Alkaline Phosphatase 62 U/L (38-126); Anion Gap 8 mmol/L (4-12); Aspartate Amino Transferase 30 U/L (14-36); Bilirubin,Total 0.7 mg/dL (0.2-1.3); Blood Urea Nitrogen 12 mg/dL (7-17); Calcium 9.1 mg/dL (8.4-10.2); Carbon Dioxide 26 mmol/L (22-30); Chloride 101 mmol/L (98-107); Creatine Kinase 338 U/L (30-135); Estimated CRCL calculation 45 ml/min; Estimated Glomerular Filt Rate 53; Glucose 117 mg/dL (65-110); Magnesium 2.1 mg/dL (1.6-2.3); Osmolality Calculated 280 mOsm/kg (285-295); Potassium 4.3 mmol/L (3.4-5.0); Sodium 135 mmol/L (137-145); Total Protein 7.8 g/dL (6.3-8.2)
[2025-01-17 08:00] VITALS: BP 130/55; PULSE 80; PULSE 81; RESP 16; TEMP 37.4; O2SAT 94
[2025-01-17 08:11] LABS: Iron 21 ug/dL (37-170)
[2025-01-17 08:22] LABS: Percent Iron Saturation 8 % (20-50)
[2025-01-17] MEDS: PANTOPRAZOLE 40 MG TABLET PO (08:35)
[2025-01-17] MEDS: HYDROXYCHLOROQUINE SULFATE 200 MG TABLET PO (08:35)
[2025-01-17] MEDS: TELMISARTAN 40 MG TABLET PO (08:36)
--- NOTE | 2025-01-17 09:57 | P.SS_ITS ---
Same Day Admit/Disch: HPI History of Present Illness Chief complaint: Weakness/fatigue/cough/nose bleeds Narrative: Marzena Figueroa is a 69 year old female who presented to the emergency department with complaints of generalized weakness, cough, fatigue that has been worsening for over a week or 2. Patient stated that she had developed intermittent nosebleeds about 2 weeks prior to admission with sinus pressure earache assumed it was just some sinuses but since then she states she has been having a low-grade fever with increased generalized weakness or appetite. patient denied any chest pain, shortness a breath, nausea, vomiting, dizziness. patient with past medical history of RA and hypertension. In the ED: patient was found to be hyponatremic at 126 a.m. with some mild dehydration evidence of acute kidney injury the creatinine of 1.45 above her baseline. patient with anemia hemoglobin 9.6 previous was 11.2. patient also elevated CPK but denied any muscle pain. patient with leukocytosis at 12.8 but viral panel negative and CXR with no acute cardiopulmonary disease and UA negative FORMERLY [facility], [facility] Past Medical History Medical History Rheumatoid arthritis with rheumatoid factor of multiple sites without organ or systems involvement (~08/2020) Alcoholic polyneuropathy Primary hypertension Surgical History Surgical History Status post complete hysterectomy Family History Family History Father Acute myocardial infarction Mother Cervical cancer Social History Social History Smoking packs per day: 1 Smoking cigarettes per day: 20.0 Years smoked: 30 Smoking pack-years: 30.00 Smoking status: Former smoker Tobacco type: cigarettes Smoking end date: 06/07/18 Alcohol intake: never Drinks per week: 22 Alcohol use details: She reports she drinks about 3 drinks a day. Sometimes more. 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 Gender identity (if verbalized by the patient): Female Spiritual care concerns: No Same Day Admit/Disch: Med Pre-admit Medications Home Medications ?Medication ?Instructions ?Recorded ?Confirmed ?Type hydroxychloroquine 200 mg tablet 200 mg PO DAILY #90 t abs 08/10/23 01/16/25 Rx (Plaquenil) upadacitinib 15 mg tablet,extended 15 mg PO DAILY 09/0401/16/25 History release 24 hr (Rinvoq) pantoprazole 40 mg tablet,delayed 40 mg PO QAM 6 weeks #42 tabs 01/12/25 01/16/25 Rx release telmisartan 40 mg tablet 40 mg PO DAILY #90 tabs 12/2901/16/25 Rx amoxicillin 875 mg-potassium 1 tablet PO Q12H #14 tabs 01/17/25 Rx clavulanate 125 mg tablet ferrous sulfate 325 mg (65 mg 325 mg PO DAILY #30 tabs 01/17/25 Rx iron) tablet Review of Systems Review of Systems All systems reviewed & are unremarkable except as noted in HPI and below Exam Const: General: comfortable and no acute distress HENMT: Mouth: Yes moist mucous membranes Eyes: General: appearance normal, both eyes and all related structures Sclera: sclerae normal Pupils: Equal, round and reactive pupils present Neck: Neck: supple and no JVD Resp: Effort & Inspection: normal respiratory effort Auscultation: clear to auscultation bilaterally Cardio: Rate: regular rate Rhythm: regular rhythm GI: GI Palp: Yes Soft to palpation Auscultation: normal bowel sounds Skin: General skin exam: normal color and no rashes or lesions noted Wounds: no wounds Neuro: General: gait normal Speech: normal speech Motor exam (neuro): 5/5 motor strength present throughout Sensory Exam: normal sensation Extrem: General: normal to inspection Psych: Mental Status: mental status grossly normal Affect: normal affect DS: Data Data Completed and Pending Labs on day of discharge: Labs from last 24 hours 01/17/25 01/16/25 01/16/25 07:14 11:16 10:58 WBC 11.7 H 12.5 H RBC 2.64 L 2.91 L Hgb 8.8 L 9.6 L Hct 26.3 L 28.5 L MCV 99.6 97.9 MCH 33.3 H 33.0 H MCHC 33.5 33.7 RDW 13.1 12.9 Plt Count 359 367 MPV 8.2 L 8.1 L Immature Gran % (Auto) 0.9 H 0.9 H Neut % (Auto) 79.0 H 79.0 H Lymph % (Auto) 3.5 L 4.4 L Drew % (Auto) 14.3 H 14.8 H Eos % (Auto) 2.0 0.5 L Baso % (Auto) 0.3 0.4 Lymph # (Auto) 0.41 L 0.55 L Drew # (Auto) 1.68 H 1.85 H Eos # (Auto) 0.23 0.06 Baso # (Auto) 0.03 0.05 Abs Immat Gran (auto) 0.11 H 0.11 H Absolute Neuts (auto) 9.26 H 9.89 H Absolute Nucleated RBC 0.00 0.00 Nucleated RBC % 0.0 0.0 Sodium 135 L 127 L Potassium 4.3 4.1 Chloride 101 91 L Carbon Dioxide 26 26 Anion Gap 8 10 BUN 12 15 Creatinine 1.03 H 1.36 H Estim Creat Clear Calc 45 35 Estimated GFR 53 L 38 L Glucose 117 H 155 H Calculated Osmolality 280 L 267 L Calcium 9.1 9.4 Magnesium 2.1 1.9 Iron 21 L TIBC 259 L % Saturation 8 L Total Bilirubin 0.7 0.9 AST 30 32 ALT 14 15 Alkaline Phosphatase 62 61 Total Creatine Kinase 338 H 300 H Troponin I 0.013 Total Protein 7.8 9.0 H Albumin 4.0 4.5 Urine Color Yellow Urine Appearance Clear Urine pH 6.0 Ur Specific [place] >= 1.030 H Urine Protein 2+ H Urine Glucose (UA) Negative Urine Ketones Trace H Ur Blood (Man) Trace-intact H Urine Nitrate Negative Urine Bilirubin 1+ H Urine Urobilinogen 1.0 Leukocyte Esterase Rfl Negative Urine RBC None seen Urine WBC None seen Ur Squamous Epith Cells Few Urine Bacteria 1+ H Hyaline Casts 5-9 H Urine Mucus Few H Influenza A (RT-PCR) Influenza B (RT-PCR) RSV (RT-PCR) SARS-CoV-2 RNA (RT-PCR) 10/13/25 10:43 WBC RBC Hgb Hct MCV MCH MCHC RDW Plt Count MPV Immature Gran % (Auto) Neut % (Auto) Lymph % (Auto) Drew % (Auto) Eos % (Auto) Baso % (Auto) Lymph # (Auto) Drew # (Auto) Eos # (Auto) Baso # (Auto) Abs Immat Gran (auto) Absolute Neuts (auto) Absolute Nucleated RBC Nucleated RBC % Sodium Potassium Chloride Carbon Dioxide Anion Gap BUN Creatinine Estim Creat Clear Calc Estimated GFR Glucose Calculated Osmolality Calcium Magnesium Iron TIBC % Saturation Total Bilirubin AST ALT Alkaline Phosphatase Total Creatine Kinase Troponin I Total Protein Albumin Urine Color Urine Appearance Urine pH Ur Specific [place] Urine Protein Urine Glucose (UA) Urine Ketones Ur Blood (Man) Urine Nitrate Urine Bilirubin Urine Urobilinogen Leukocyte Esterase Rfl Urine RBC Urine WBC Ur Squamous Epith Cells Urine Bacteria Hyaline Casts Urine Mucus Influenza A (RT-PCR) Negative Influenza B (RT-PCR) Negative RSV (RT-PCR) Negative SARS-CoV-2 RNA (RT-PCR) Negative Imaging Radiologist's impression: Examination: XR chest 2V Clinical History: weakness Comparison: 05/12/2024 Technique: PA and Lateral Findings: Cardiomediastinal silhouette normal size and configuration. Lungs clear. Chronic right basilar CP angle atelectasis and/or scarring. No acute bony abnormality. Osteopenia. IMPRESSION: 1. No acute cardiopulmonary findings. DS: Summary Hospital Course Reason for hospitalization: Weakness/fatigue/cough/nose bleeds Hospital Course: Mrazena Figueroa is a 69 year old female who presented to the emergency department with complaints of generalized weakness, cough, fatigue that has been worsening for over a week or 2. Patient stated that she had developed intermittent nosebleeds about 2 weeks prior to admission with sinus pressure earache assumed it was just some sinuses but since then she states she has been having a low- grade fever with increased generalized weakness or appetite. patient denied any chest pain, shortness a breath, nausea, vomiting, dizziness. patient with past medical history of RA and hypertension. In the ED: patient was found to be hyponatremic at 126 a.m. with some mild dehydration evidence of acute kidney injury the creatinine of 1.45 above her baseline. patient with anemia hemoglobin 9.6 previous was 11.2. patient also elevated CPK but denied any muscle pain. patient with leukocytosis at 12.8 but viral panel negative and CXR with no acute cardiopulmonary disease and UA negative Hospital Course: Patient was admitted to the medical unit on IV fluids with follow-up labs in the a.m. patient with improvement sodium back to 135 and renal function back to baseline patient's hemoglobin did drop mildly to 8.8 but no evidence active bleed secondary to dilution. I did perform an iron panel which showed deficiency and will start patient on iron supplements at discharge. after assessment patient she still had sinus pressure and mild earache with leukocytosis likely sinusitis advised patient I would start her on oral Augmentin for sinus infection could be likely cause of patient's epistaxis. patient reported she was feeling well after the IV fluids and back to her baseline I did recommend if epistaxis returns to follow up with her ENT. patient discharged home will follow up with her primary care physician as scheduled. Status at Discharge Functional status at discharge: independent ambulation Overall status at discharge: patient is back to baseline Time Spent with Patient Time attestation: Total time spent providing and/or coordinating discharge services: Time spent: Greater than 30 minutes DS: Admitting Diagnosis Discharge Date 01/17/2025 Admitting Diagnosis Hyponatremia/dehydration/anemia/MURIEL/Rhabdomyolysis DS: Discharge Diagnosis Discharge Diagnosis (1) Epistaxis: Code(s): R04.0 - Epistaxis Status: Acute (2) Sinusitis: Code(s): J32.9 - Chronic sinusitis, unspecified Status: Acute (3) MURIEL (acute kidney injury): Code(s): N17.9 - Acute kidney failure, unspecified Status: Acute (4) Acute hyponatremia: Code(s): E87.1 - Hypo-osmolality and hyponatremia Status: Acute (5) Acute dehydration: Code(s): E86.0 - Dehydration Status: Acute (6) Rhabdomyolysis: Qualifiers: Rhabdomyolysis type: non-traumatic Qualified Code(s): M62.82 - Rhabdomyolysis Code(s): M62.82 - Rhabdomyolysis Status: Acute (7) Iron deficiency anemia: Code(s): D50.9 - Iron deficiency anemia, unspecified Status: Acute Discharge Plan Discharge Attending physician on discharge: Efrain Martinez Consulting providers: Ceci Moran Discharging Clinician: Ceci Moran Anticipated Discharge Date/Time: 01/17/25 10:09 Patient Disposition: Home Activity: may shower and as tolerated Diet: regular Discharge Instructions: 1). Hyponatremia/Dehydration * Encourage oral hydration 2). Anemia * I have prescribed Iron supplements please take as indicated a common side effect can be constipation. * Follow-up labs outpatient for close monitoring 3). Sinusitis * I have prescribed oral antibiotic please take as indicated even if feeling better How can you care for yourself at home? ? Keep track of any new symptoms or changes in your symptoms. ? Rest until you feel better. ? Be safe with medicines. Take your medicines exactly as prescribed. Call your doctor if you think you are having a problem with your medicine. ? Do not drive after taking a prescription pain medicine. ? Ensure to follow-up with primary care physician as indicated and provide updated medication list provided to you at discharge. When should you call for help? Call 911 anytime you think you may need emergency care. For example, call if: ? You passed out (lost consciousness). Call your doctor now or seek immediate medical care if: ? You have new symptoms like fever, difficulty breathing, Chest pain, vomiting, or rash. ? You have new or different pain. ? You are confused and are having trouble thinking clearly. ? Your symptoms are getting worse. Watch closely for changes in your health, and be sure to contact your doctor if: ? You do not get better as expected. Patient Instructions: Antibiotic Form, Sinusitis (GEN), Hyponatremia (DC), Iron Deficiency Anemia (GEN) Patient Language: Turkmen Stand Alone Forms: General Discharge Information Follow-up/Referrals: Marco Gongora DO [Primary Care Provider, [facility]] - 4 Weeks Discharge Medications: New ferrous sulfate 325 mg (65 mg iron) tablet 325 mg PO DAILY Qty: 30 0RF amoxicillin-pot clavulanate 875-125 mg tablet 1 tablet PO Q12H Qty: 14 0RF Continued hydroxychloroquine [Plaquenil] 200 mg tablet 200 mg PO DAILY Qty: 90 1RF Rinvoq 15 mg tablet extended release 24 hr 15 mg PO DAILY telmisartan 40 mg tablet 40 mg PO DAILY Qty: 90 0RF pantoprazole 40 mg tablet,delayed release (DR/EC) 40 mg PO QAM 42 Days Qty: 42 0RF Date of admission: 01/16/25 11:53 Primary Care Provider: Marco Gongora Admitting Provider: Efrain Martinez Attending physician on admission: Efrain Martinez Condition: Stable Quality VTE Prophylaxis VTE prophylaxis: mechanical ordered -Patient's previous records reviewed on admission -ER notes reviewed in detail on admission -discussed all findings and current treatment plan with patient/Family/POA -Consultations reviewed for recommendations -Patient's disposition for safe discharge discussed with caser up -radiology imaging, EKG and test results I have personally reviewed and interpreted unless otherwise specified Dictation performed by [employer] direct speech recognition software, therefore catalog librarian variants and typographical errors may occur. Hospitalist MIPS Advance Care Plan I have confirmed that the patient's Advanced Care Plan is present, code status is documented, or surrogate decision maker is listed in patient medical record.: Yes Medication Reconciliation I have utilized all available resources to obtain, update and review the patients current medications (includes all prescriptions, OTC, herbals, cannabis, and nutritional supplements).: Yes The patient is not eligible for med reconciliation; the patient is in a emergent medical situation where delaying treatment would jeopardize the patients health.: No Heart Failure (Exclusion) Patient has history of Heart Transplant or Left Ventricular Assistive Device?: No IF YES, STOP HERE Heart Failure (Qualifier) Patient has current or prior documentation of LVEF less than or equal to 40%, or mod/servere depressed LVSF?: No IF NO, STOP HERE
--- NOTE | 2025-01-17 11:19 | PC.NURSE ---
DC to home via personal vehicle. vss, iv removed intact. aox4. instructions given to pt, v/u.
== END 2025-01-17 11:05 | disposition home or self-care (01) ==
LOC: CHSED 11:53 → CHS2ND 11:57
PROVIDERS: Nurse Practitioner Family; Admitting Provider Internal Medicine; Emergency Provider Emergency Medicine; PCP Family Medicine; Visit Provider Internal Medicine
DX: N17.9 Acute kidney failure, unspecified (principal); E87.1 Hypo-osmolality and hyponatremia; E86.0 Dehydration; M62.82 Rhabdomyolysis; R04.0 Epistaxis; D50.9 Iron deficiency anemia, unspecified; J32.9 Chronic sinusitis, unspecified; R53.1 Weakness; R53.83 Other fatigue; D72.829 Elevated white blood cell count, unspecified; M05.79 Rheumatoid arthritis with rheumatoid factor of multiple sites without organ or systems involvement; I10 Essential (primary) hypertension; Z87.891 Personal history of nicotine dependence; Z20.822 Contact with and (suspected) exposure to COVID-19
CPT/HCPCS: 36415; 71046; 80053; 81001; 82550; 83540; 83550; 83735; 84484; 85025; 87637; 93005; 96361; 96374; 99285; A9270; G0378; J2405; J7030

== ENCOUNTER 2025-02-23 07:03 | Outpatient (CLI) | payer MEDICARE, OTHER, SELFPAY ==
[2025-02-23 07:19] LABS: Hematocrit 33.2 % (35.0-42.0); Hemoglobin 10.8 g/dL (11.7-13.8); Immature Granulocyte Percent A 0.9 % (0.0-0.0); Lymphocytes Absolute Auto 1.35 K/mm3 (1.10-4.50); Mean Corpuscular HGB Conc 32.5 g/dL (32-36); Mean Corpuscular Hemoglobin 32.4 pg (27.0-31.0); Mean Corpuscular Volume 99.7 fL (78.0-102.0); Nucleated Red Blood Cells Absolute Auto 0.00 K/mm3 (0.00-0.00); Nucleated Red Blood Cells Perc 0.0 % (0-0.0); Platelet Count Result 360 K/mm3 (150-420); Red Blood Count 3.33 M/mm3 (4.20-5.40); White Blood Count 7.6 K/mm3 (4.8-10.8)
[2025-02-23 07:20] LABS: Add Urine Microscopic? NO; Appearance Urine Clear (Clear); Glucose Urine UA Negative (Negative); Leukocyte Esterase Ur Negative (Negative); Nitrate Urine Negative (Negative); Specific Grav Ur 1.025 (1.010-1.020)
[2025-02-23 08:15] LABS: Alanine Aminotransferase 18 U/L (6-35); Albumin Level 4.8 g/dL (3.5-5.1); Alkaline Phosphatase 121 U/L (38-126); Anion Gap 9 mmol/L (4-12); Aspartate Amino Transferase 38 U/L (14-36); Bilirubin,Total 0.6 mg/dL (0.2-1.3); Blood Urea Nitrogen 20 mg/dL (7-17); CRP < 0.5 mg/dL (<1.0); Calcium 9.8 mg/dL (8.4-10.2); Carbon Dioxide 27 mmol/L (22-30); Chloride 101 mmol/L (98-107); Estimated Glomerular Filt Rate 41; Glucose 104 mg/dL (65-110); Osmolality Calculated 286 mOsm/kg (285-295); Potassium 5.2 mmol/L (3.4-5.0); Sodium 137 mmol/L (137-145); Total Protein 7.7 g/dL (6.3-8.2)
== END 2025-02-23 07:04 | disposition home or self-care (01) ==
LOC: CHSLAB 07:05
PROVIDERS: PCP Nurse Practitioner Family; Visit Provider Internal Medicine
DX: M06.09 Rheumatoid arthritis without rheumatoid factor, multiple sites (principal)
CPT/HCPCS: 36415; 80053; 81003; 85025; 85652; 86140

== ENCOUNTER 2025-02-25 08:51 | Outpatient (CLI) | payer MEDICARE, OTHER, SELFPAY ==
--- NOTE | ~2025-02-25 | MR_ITS ---
EXAMINATION: MR TMJS DATE: 02/25/2025 09:51 INDICATION: Right temporomandibular joint crepitus. TECHNIQUE: Magnetic resonance imaging (MRI) of the temporomandibular joints was performed without intravenous contrast. COMPARISON: None. FINDINGS: The right mandibular condyle is flattened and demonstrates osteophytes and edema-like marrow signal intensity. There is anterior displacement of the disc in the closed mouth position. There is normal anterior translation of the mandibular condyle in the open-mouth position. There is persistent anterior displacement of the disc in the open-mouth position. The left mandibular condyle demonstrates tiny osteophytes. There is normal position of the disc in the closed mouth position. There is greater than expected anterior translation of the mandibular condyle in the open-mouth position. There is normal position of the disc in the open-mouth position. IMPRESSION: 1. Severe right temporomandibular joint osteoarthritis with abnormal anterior displacement of the disc in the closed and open mouth positions. 2. Mild left temporomandibular joint osteoarthritis with normal position of the disc. Reviewed, dictated and finalized at location E. ON [facility] IMPRESSION: 1. Severe right temporomandibular joint osteoarthritis with abnormal anterior d isplacement of the disc in the closed and open mouth positions. 2. Mild left temporomandibular joint osteoarthritis with normal position of the disc.
== END 2025-02-25 08:52 | disposition home or self-care (01) ==
LOC: CHSIMG 08:53
PROVIDERS: PCP Nurse Practitioner Family; Visit Provider Nurse Practitioner Family
DX: F10.20 Alcohol dependence, uncomplicated (principal); M26.609 Unspecified temporomandibular joint disorder, unspecified side; D50.9 Iron deficiency anemia, unspecified; M05.79 Rheumatoid arthritis with rheumatoid factor of multiple sites without organ or systems involvement; M62.82 Rhabdomyolysis; M19.09 Primary osteoarthritis, other specified site
CPT/HCPCS: 70540